=== PATIENT | female | born 1965 | race Caucasian/White ===

== ENCOUNTER 2023-04-23 17:28 | Observation (INO) | payer BC ==
--- NOTE | 2023-04-23 19:19 | US ---
EXAMINATION TYPE: US venous doppler duplex LE LT DATE OF EXAM: 04/23/2023 6:17 PM COMPARISON: NONE CLINICAL INDICATION: Female, 57 years old with history of pain; Pt states she woke up this morning an d her left leg was swollen. Pt states it only hurts to walk on it.. Not on blood thinners SIDE PERFORMED: Left TECHNIQUE: The lower extremity deep venous system is examined utilizing real time linear array sonog klaudia with graded compression, doppler sonography and color-flow sonography. VESSELS IMAGED: Common Femoral Vein Deep Femoral Vein Greater Saphenous Vein * Femoral Vein Popliteal Vein Small Saphenous Vein * Proximal Calf Veins (* superficial vessels) Left Leg: There appears to be thrombus seen from the CFV all the way down to the calf veins with no flow. IMPRESSION: Extensive deep venous thrombosis of the left lower extremity extending from the common femoral vein d own to the calf. Findings called to Dr. Martinez on 04/23/2023 at 7:14 PM.
[2023-04-23] MEDS ORDERED: APIXABAN 5 MG TAB PO STA (19:21)
--- NOTE | 2023-04-23 19:40 | ED ---
Extremity Problem HPI - General Chief complaint: Extremity Problem,Nontraumatic Stated complaint: poss leg clot-sent from urgent care Time Seen by Provider: 04/23/23 18:05 Source: patient Mode of arrival: ambulatory Limitations: no limitations - History of Present Illness Initial comments: Patient is a 57-year-old female presents to the emergency department for possible DVT. She has had pain in the back of her left thigh when walking for the past couple days. Today she noticed discoloration of her leg and went to urgent care. She was sent to the emergency department. She denies history of DVT and PE. She does admit to recent long travel in the car. She is a tobacco user. Denies hormone replacement, airplane travel, surgical interventions, known cancers, family history of clotting, tobacco use. No chest pain or shortness of breath. - Related Data Home Medications Medication Instructions Recorded Confirmed Famotidine [Pepcid] 20 mg PO BID 04/23/23 04/23/23 lisinopriL [Zestril] 5 mg PO DAILY 04/23/23 04/23/23 Allergies Allergy/AdvReac Type Severity Reaction Status Date / Time codeine Allergy Nausea & Verified 04/23/23 20:07 Vomiting naproxen [From Naprosyn] Allergy Anaphylaxis Verified 04/23/23 20:07 Review of Systems ROS Statement: Those systems with pertinent positive or pertinent negative responses have been documented in the HPI. ROS Other: All systems not noted in ROS Statement are negative. Past Medical History Additional Past Medical History / Comment(s): brain aneurysm History of Any Multi-Drug Resistant Organisms: None Reported Past Surgical History: Section Past Psychological History: No Psychological Hx Reported Smoking Status: Current every day smoker Past Alcohol Use History: Daily Past Drug Use History: Marijuana General Exam Limitations: no limitations General appearance: alert, in no apparent distress Respiratory exam: Present: normal lung sounds bilaterally. Absent: respiratory distress, wheezes, rales, rhonchi, stridor Cardiovascular Exam: Present: regular rate, normal rhythm, normal heart sounds. Absent: systolic murmur, diastolic murmur, rubs, gallop, clicks Extremities exam: Present: other (red/blue discoloration of entire left lower extremity. DP 2+.) Neurological exam: Present: alert, oriented X3, CN II-XII intact Psychiatric exam: Present: normal affect, normal mood Skin exam: Present: warm, dry, intact, normal color. Absent: rash Course Vital Signs 04/23/23 04/23/23 04/23/23 17:58 20:21 21:41 Temperature 98.3 F 98.7 F 97.9 F Pulse Rate 112 H 76 90 Respiratory 20 16 14 Rate Blood Pressure 115/79 169/85 139/73 O2 Sat by Pulse 97 94 L 97 Oximetry Medical Decision Making - Medical Decision Making Was pt. sent in by a medical professional or institution (KYRIE Holland, SWITCHBOARD RECEPTIONIST, urgent care, hospital, or half-way...) When possible be specific @ -No Did you speak to anyone other than the patient for history (EMS, parent, family, police, friend...)? What history was obtained from this source @ -No Did you review nursing and triage notes (agree or disagree)? Why? @ -I reviewed and agree with nursing and triage notes Were old charts reviewed (outside hosp., previous admission, EMS record, old EKG, old radiological studies, urgent care reports/EKG's, half-way records)? Report findings @ -No old charts were reviewed Differential Diagnosis (chest pain, altered mental status, abdominal pain women, abdominal pain men, vaginal bleeding, weakness, fever, dyspnea, syncope, headache, dizziness, GI bleed, back pain, seizure, CVA, palpatations, mental health)? @ -DVT, cellulitis, phlegmasia cerulea dolens EKG interpreted by me (3pts min.). @ -As above X-rays interpreted by me (1pt min.). @ -None done CT interpreted by me (1pt min.). @ -None done U/S interpreted by me (1pt. min.). @ -No. Ultrasound shows thrombus seen from the common femoral vein all the way down the calf veins with no flow What testing was considered but not performed or refused? (CT, X-rays, U/S, labs)? Why? @ -None What meds were considered but not given or refused? Why? @ -None Did you discuss the management of the patient with other professionals (professionals i.e. KYRIE Holland, SWITCHBOARD RECEPTIONIST, lab, RT, psych nurse, administrator social welfare, features reporter, teacher, disability liaison officer, window caser)? Give summary @ -No Was smoking cessation discussed for >3mins.? @ -No Was critical care preformed (if so, how long)? @ -No Were there social determinants of health that impacted care today? How? (Homelessness, low income, unemployed, alcoholism, drug addiction, transportation, low edu. Level, literacy, decrease access to med. care, fdc, rehab)? @ -No Was there de-escalation of care discussed even if they declined (Discuss DNR or withdrawal of care, Hospice)? DNR status @ -No What co-morbidities impacted this encounter? (DM, HTN, Smoking, COPD, CAD, Cancer, CVA, ARF, Chemo, Hep., AIDS, mental health diagnosis, sleep apnea, morbid obesity)? @ -None Was patient admitted / discharged? Hospital course, mention meds given and route, prescriptions, significant lab abnormalities, going to OR and other pertinent info. @ -Admitted. Patient has extensive thrombus seen from the common femoral vein all the way down the calf pains with no flow. 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 Patient did have brain aneurysm several years ago she will be admitted for further evaluation and management. Case discussed with Dr. Carney who accepts admission or observation. Vascular surgery is on consult Undiagnosed new problem with uncertain prognosis? @ -No Drug Therapy requiring intensive monitoring for toxicity (Heparin, Nitro, Insulin, Cardizem)? @ -No Were any procedures done? @ -No Diagnosis/symptom? @ -DVT left lower extremity Acute, Chronic, or Acute on Chronic? Acute Uncomplcated (without systemic symptoms) or Complicated (systemic symptoms)? @ -Uncomplicated Side effects of treatment? @ -No Exacerbation, Progression, or Severe Exacerbation? @ -No Poses a threat to life or bodily function? How? (Chest pain, [place], [place], pneumonia, PE, COPD, DKA, ARF, appy, cholecystitis, CVA, Diverticulitis, Homicidal, Suicidal, threat to staff... and all critical care pts) @ -No Dr. Meléndez is my attending Disposition Clinical Impression: Deep vein thrombosis (DVT) of lower extremity Disposition: ADMITTED IP TO THIS HOSP Condition: Good
[2023-04-23] MEDS ORDERED: ACETAMINOPHEN TAB 325 MG TAB PO PRN (19:41)
[2023-04-23] MEDS ORDERED: IPRATROPIUM-ALBUTEROL 3 ML NEB INHALATION PRN (23:41)
--- NOTE | 2023-04-23 23:51 | P.HPIM ---
History of Present Illness H&P Date: 04/23/23 Chief Complaint: left leg swelling 57 year old female with hypertension she is coming in today due to sudden onset pain and swelling of the left leg and thigh. she claims that suddenly today noticed swelling and discoloration over the left leg and thigh, along with extreme pain while walking that is resolved with rest. she denies any injury or similar episodes in the past, denies any history of blood clots. denies history of arthritis . denies any history of recent surgery , or cancer. denies any recent hospital stay. however, she does report of recent traveling by car, about 2 weeks ago she traveled 9 hours back from vacation by car. she claims that they made multiple stops for gas and food though. otherwise, denies any trouble breathing or chest pain , no fever, chills, no open wounds over the leg, no tenderness while resting doing nothing. no numbness or tingling over the left leg. Review of Systems Pertinent positives as noted in HPI. All other systems were reviewed and are negative Past Medical History Additional Past Medical History / Comment(s): brain aneurysm History of Any Multi-Drug Resistant Organisms: None Reported Past Surgical History: Section Past Psychological History: No Psychological Hx Reported Smoking Status: Current every day smoker Past Alcohol Use History: Daily Past Drug Use History: Marijuana Medications and Allergies Home Medications Medication Instructions Recorded Confirmed Type Famotidine [Pepcid] 20 mg PO BID 04/23/23 04/23/23 History lisinopriL [Zestril] 5 mg PO DAILY 04/23/23 04/23/23 History Allergies Allergy/AdvReac Type Severity Reaction Status Date / Time codeine Allergy Nausea & Verified 04/23/23 20:07 Vomiting naproxen [From Naprosyn] Allergy Anaphylaxis Verified 04/23/23 20:07 Physical Exam Vitals: Vital Signs Temp Pulse Resp BP Pulse Ox 04/23/23 17:58 98.3 F 112 H 20 115/79 97 Intake and Output 04/23/23 04/23/23 04/23/23 06:59 14:59 22:59 Other: Weight 67.132 kg Constitutional: No acute distress, conversant, pleasant Eyes: Anicteric sclerae, moist conjunctiva, Pupils equal round reactive to light ENMT: NC/AT Oropharynx clear, no erythema, or exudates Neck: Supple, no masses, or JVD No carotid bruits No thyromegaly Lungs: good air entry, with end expiratory wheezing Clear to percussion Normal respiratory effort, no accessory muscle use Cardiovascular: Heart regular in rate and rhythm, No murmurs, gallops, or rubs swelling of the left leg and thigh Abdominal: Soft Nontender, no guarding, rebound or rigidity Abdomen moving with respiration Normoactive bowel sounds No hepatomegaly, No splenomegaly No palpable mass No abdominal wall hernia noted Skin: dusky looking left lower extremity with swelling , no erythema or induration. no open wounds. Extremities: No digital cyanosis No clubbing Pedal pulses intact and symmetrical Radial pulses intact and symmetrical left calf tenderness Psychiatric: Alert and oriented to person, place and time Appropriate affect fair judgment Neuro Muscles Strength 5/5 in all 4 extremities (with limitation over the left leg, due to pain) Sensation to light touch grossly present throughout Cranial nerves II-XII grossly intact Lymphatics: no palpable cervical or supraclavicular lymph nodes Assessment and Plan Assessment: 57 year old female presenting with left leg pain , I discussed the case with ED doc, she has large acute DVT left common femoral all the way into the calf. I accepted the admission for anticoagulation and vascular surgery eval. with antic ipated length of stay < 2 midnights acute provoked DVT of the left leg initiated on Eliquis 10 mg bid for 1 week, then transition to 5 mg bid po monitor vital signs vascular surgery eval neruo vascular exam of the left leg q4hr supportive care pain control with opiates hypertension , controlled resume lisinopril 5 mg po daily full code DVT PPX on eliquis for acute DVT heart healthy diet clinical copd PRN duoneb for SOB or wheezing blood work is not available at this time . will send for CBC, PT, PTT, INR, CMP, factor 5 ,
[2023-04-24 01:02] LABS: Basophils % (A) 0 %; Eosinophils % (A) 0 %; HCT 47.8 % (34.0-46.0); HGB 16.1 gm/dL (11.4-16.0); Lymphocytes # (A) 1.4 k/uL (1.0-4.8); Lymphocytes % (A) 17 %; MCH 34.6 pg (25.0-35.0); MCHC 33.7 g/dL (31.0-37.0); MCV 102.8 fL (80.0-100.0); Macrocytosis Slight; Mean Platelet Volume 7.7; Monocytes # (A) 0.5 k/uL (0-1.0); Monocytes % (A) 6 %; Neutrophils # (A) 6.3 k/uL (1.3-7.7); Neutrophils % (A) 75 %; Platelet Count 173 k/uL (150-450); RBC 4.65 m/uL (3.80-5.40); RDW 12.4 % (11.5-15.5); WBC 8.3 k/uL (3.8-10.6)
[2023-04-24 01:53] LABS: INR 0.9 (<1.2); Partial Thromboplastin Time 27.5 sec (22.0-30.0); Prothrombin Time 9.6 sec (9.0-12.0)
[2023-04-24 01:54] LABS: ALT 41 U/L (4-34); AST 41 U/L (14-36); African American GFR (CKD) >90 (>60 ml/min/1.73 sqM); Albumin 4.2 g/dL (3.5-5.0); Albumin/Globulin Ratio 1.4; Alkaline Phosphatase 77 U/L (38-126); Anion Gap 13 mmol/L; Blood Urea Nitrogen 13 mg/dL (7-17); Calcium 9.1 mg/dL (8.4-10.2); Carbon Dioxide 20 mmol/L (22-30); Chloride 95 mmol/L (98-107); Globulin 3.1 g/dL; Glucose 111 mg/dL (74-99); Non-African American GFR(CKD) >90 (>60 ml/min/1.73 sqM); Potassium 4.2 mmol/L (3.5-5.1); Sodium 128 mmol/L (137-145); Total Protein 7.3 g/dL (6.3-8.2)
[2023-04-24 05:18] VITALS: RESP 18
--- NOTE | 2023-04-24 08:57 | P.GSCN ---
History of Present Illness Consult date: 04/24/23 Reason for Consult: Extensive left lower extremity DVT Requesting physician: Meliza Madrid History of present illness: This is a pleasant 57-year-old female who presented to the emergency department yesterday afternoon with complaints of left lower extremity swelling and pain that began 1-2 days ago. Her past medical history includes brain aneurysm in her 20s, daily alcohol use, and 1 pack per day daily smoker. She denied any injuries. Pain is mostly with walking. She had a venous duplex that showed extensive DVT from the common femoral vein down the calf. Vascular surgery was consulted for DVT. She denies any history of previous DVT, no history of pulmonary embolism, clotting disorder or family history of DVT or clotting disorders. She is a daily smoker and smokes 1 pack per day, also drinks 6-7 be ers daily and uses marijuana. She recently went on a trip in the car about 2 weeks ago that was about 9 hours. She currently denies any shortness of breath or chest pain, currently denies any pain in her leg and states the swelling has improved since coming to the emergency room. She was started on Eliquis 10 mg yesterday evening. Review of Systems A 14 point review systems was completed all pertinent positives and negatives as stated in the HPI. Past Medical History Additional Past Medical History / Comment(s): brain aneurysm History of Any Multi-Drug Resistant Organisms: None Reported Past Surgical History: Section Past Psychological History: No Psychological Hx Reported Smoking Status: Current every day smoker Past Alcohol Use History: Daily Past Drug Use History: Marijuana Medications and Allergies Home Medications Medication Instructions Recorded Confirmed Type Famotidine [Pepcid] 20 mg PO BID 04/23/23 04/23/23 History lisinopriL [Zestril] 5 mg PO DAILY 04/23/23 04/23/23 History Allergies Allergy/AdvReac Type Severity Reaction Status Date / Time codeine Allergy Nausea & Verified 04/23/23 20:07 Vomiting naproxen [From Naprosyn] Allergy Anaphylaxis Verified 04/23/23 20:07 Surgical - Exam Vital Signs Temp Pulse Resp BP Pulse Ox 98.3 F 112 H 20 115/79 97 04/23/23 17:58 04/23/23 17:58 04/23/23 17:58 04/23/23 17:58 04/23/23 17:58 General appearance: The patient is alert, oriented, appears in no acute distress. HET: Head is normocephalic and atraumatic. Pupils are equal and reactive. Neck: Supple. Heart: Regular. Lungs: Equal expansion, normal respiratory effort. Abdomen: Soft, nontender, nondistended. Extremities: Left lower extremity swelling from the thigh down with redness. No pain with compression. Palpable femoral and DP pulse. Neurological: No focal deficits. Strength and sensation are grossly intact. Results - Labs 04/24/23 00:15 04/24/23 00:15 Abnormal Lab Results - Last 24 Hours (Table) 04/24/23 04/24/23 Range/Units 00:15 00:15 Hgb 16.1 H (11.4-16.0) gm/dL Hct 47.8 H (34.0-46.0) % MCV 102.8 H (80.0-100.0) fL Sodium 128 L (137-145) mmol/L Chloride 95 L (98-107) mmol/L Carbon Dioxide 20 L (22-30) mmol/L Glucose 111 H (74-99) mg/dL AST 41 H (14-36) U/L ALT 41 H (4-34) U/L Diabetes panel 04/24/23 Range/Units 00:15 Sodium 128 L (137-145) mmol/L Potassium 4.2 (3.5-5.1) mmol/L Chloride 95 L (98-107) mmol/L Carbon Dioxide 20 L (22-30) mmol/L BUN 13 (7-17) mg/dL Creatinine 0.62 (0.52-1.04) mg/dL Glucose 111 H (74-99) mg/dL Calcium 9.1 (8.4-10.2) mg/dL AST 41 H (14-36) U/L ALT 41 H (4-34) U/L Alkaline Phosphatase 77 (38-126) U/L Total Protein 7.3 (6.3-8.2) g/dL Albumin 4.2 (3.5-5.0) g/dL Calcium panel 04/24/23 Range/Units 00:15 Calcium 9.1 (8.4-10.2) mg/dL Albumin 4.2 (3.5-5.0) g/dL Pituitary panel 04/24/23 Range/Units 00:15 Sodium 128 L (137-145) mmol/L Potassium 4.2 (3.5-5.1) mmol/L Chloride 95 L (98-107) mmol/L Carbon Dioxide 20 L (22-30) mmol/L BUN 13 (7-17) mg/dL Creatinine 0.62 (0.52-1.04) mg/dL Glucose 111 H (74-99) mg/dL Calcium 9.1 (8.4-10.2) mg/dL Adrenal panel 04/24/23 Range/Units 00:15 Sodium 128 L (137-145) mmol/L Potassium 4.2 (3.5-5.1) mmol/L Chloride 95 L (98-107) mmol/L Carbon Dioxide 20 L (22-30) mmol/L BUN 13 (7-17) mg/dL Creatinine 0.62 (0.52-1.04) mg/dL Glucose 111 H (74-99) mg/dL Calcium 9.1 (8.4-10.2) mg/dL Total Bilirubin 1.0 (0.2-1.3) mg/dL AST 41 H (14-36) U/L ALT 41 H (4-34) U/L Alkaline Phosphatase 77 (38-126) U/L Total Protein 7.3 (6.3-8.2) g/dL Albumin 4.2 (3.5-5.0) g/dL Assessment and Plan Assessment: 1. Extensive left lower extremity deep vein thrombosis 2. Nicotine dependence, one pack per day smoker 3. Daily alcohol use, admits to 6-7 beers daily 4. History of brain aneurysm Plan: Patient swelling has improved while lying down and elevating left lower extremity. Continue with eliquis starter pack. Thigh-high NATAN hose to left lower extremity, continue to elevate. No plans at this time for any surgical intervention. Recommend patient follow-up with Dr. Brennan next week. Discuss with patient importance of smoking and alcohol cessation. Patient verbalized understanding. The impression and plan of care has been dictated as directed. Dr. Brennan I performed a history and examination of this patient, discussed the same with the dictator. I agree with the dictator's note ,documented as a scribe. Any additional findings or plans will be noted.
[2023-04-24] MEDS ORDERED: Apixaban Starter Pk for VTE 5 MG TAB PO SCH (09:00)
[2023-04-24] MEDS ORDERED: lisinopriL 5 MG TAB PO SCH (09:00)
[2023-04-24] MEDS ORDERED: FAMOTIDINE 20 MG TAB PO SCH (09:00)
--- NOTE | 2023-04-24 09:40 | P.DS ---
Providers Date of admission: 04/23/23 19:49 Expected date of discharge: 04/24/23 Attending physician: Elmo Carney MD Consults: 04/23/23 19:40 Consult Physician Routine Consulting Provider: Ciro Romero Consult Reason/Comments: DVT Do you want consulting provider notified?: Yes Primary care physician: Storm Pina Hospital Course: Discharge Diagnosis: Extensive left lower extremity DVT, patient discharged home on Eliquis starter pack and a follow up outpatient with vascular surgeon in 1 week. Nicotine dependence, patient counseled on importance of smoking cessation and risks associated with continued use. At risk alcohol use/abuse, patient reports drinking 6-7 beers daily. Recommend decrease/cessation of use. Hypochloremic Hyponatremia, secondary to daily alcohol use/abuse Elevated liver enzymes, secondary to daily alcohol use/abuse Polycythemia secondary to daily nicotine dependence. History of brain aneurysm Hospital Course: Patient is a very pleasant 57-year-old female with a past medical history of alcohol use/abuse, nicotine dependence, and history of brain aneurysm. She presented to the emergency department secondary to left lower extremity pain and swelling 2 days. Patient reports pain and swelling extended from distal left lower extremity upwards into side. Patient reports swelling and pain improved with rest but severely increased with ambulation/attempts at ambulation. Patient underwent a left lower extremity venous Doppler which revealed an extensive DVT of the left lower extremity extending from the common femoral down to the calf. She was evaluated by vascular surgery. Patient started on oral anticoagulation with Eliquis and cleared from vascular surgery standpoint for discharge. Patient currently eager for discharge denying any dizziness, lightheadedness, headache, chest pain, palpitations, shortness of breath, or any other complaints. She does report improvement in swelling throughout the night with elevation of leg. Patient educated on the importance of taking anticoagulant as indicated and to follow up outpatient with PCP in 1-2 days and vascular surgery in 1 week. Physical exam: Patient seen and examined at bedside. Vital signs reviewed and stable. General: Nontoxic, no distress and appears stated age. Derm: Skin warm and dry, normal coloration for ethnicity. Head: Atraumatic, normocephalic and symmetric. Eyes: EOMs intact, no lid lag, and anicteric sclera Mouth: no lip lesions, mucus membranes moist Cardiovascular: regular rate and rhythm with normal S1S2, no murmur, positive posterior tibial pulses bilaterally, and cap refill < 2 seconds. Lungs: Respirations even, regular, and unlabored on room air. Lungs CTA bilaterally, no rhonchi, no rales, no wheezing, and no accessory muscle usage. Abdominal: soft, nontender to palpation, no guarding, no appreciable organomegaly Ext: ROM intact. No gross muscle atrophy, mild swelling left lower extremity, no contractures Neuro: Speech clear, face symmetrical and CN II-XII grossly intact with no noted focal neuro deficits Psych: Alert and oriented to person, place, time, and situation. Appropriate and pleasant affect. A total of 32 minutes of time were spent preparing this complex discharge summary. Pt was discharged on 04/24/23 at 9:34 AM Patient was seen independently by Nurse Practitioner. This document was prepared using [employer] dictation software. Please allow for errors in change management facilitator while rare they do occur. I reviewed the documentation as provided by the REKHA above, who is the original author of this note. I agree with the documented assessment and plan, with the following changes: none Patient Condition at Discharge: Stable Plan - Discharge Summary New Discharge Prescriptions: New Apixaban [Eliquis Starter Pack (for VTE)] 5 - 10 mg PO DIRECTED 30 Days #1 each Continue lisinopriL [Zestril] 5 mg PO DAILY Famotidine [Pepcid] 20 mg PO BID Discharge Medication List Famotidine [Pepcid] 20 mg PO BID 04/23/23 [History] lisinopriL [Zestril] 5 mg PO DAILY 04/23/23 [History] Apixaban [Eliquis Starter Pack (for VTE)] 5 - 10 mg PO DIRECTED 30 Days #1 each 04/24/23 [Rx] Follow up Appointment(s)/Referral(s): Storm Pina MD [Primary Care Provider] - 1-2 days Rosy Brennan DO [STAFF PHYSICIAN] - 1 Week () Patient Instructions/Handouts: How to Stop Smoking (DC), Deep Vein Thrombosis (DC), At-Risk Alcohol Use (DC), Deep Vein Thrombosis Prevention (DC) Activity/Diet/Wound Care/Special Instructions: Activity: As tolerated. Take breaks as needed. Diet: Heart healthy and carb consistent diet. Avoid salts, or foods with hidden salts such as canned or boxed foods and frozen dinners. Extra salt makes your heart work harder and traps the fluid in your body for longer. Special Instructions: Take all of your medications as directed and remember to keep all of your doctor's appointments and follow-up as needed. You are also being discharged home on a blood thinner, Eliquis. This is very important to take daily as directed until otherwise advised by your vascular surgeon, Dr. Brennan. Being that you are being placed on a blood thinner it is very important to watch for any signs of bleeding and notify your doctor immediately if you notice any bleeding. It is also important to remove any trip hazards such as rugs or loose extension cords from your home to prevent unnecessary falls and if you do experience a fall or head injury, it is extremely important to be evaluated by a medical provider immediately to ensure no internal bleeding. Thank you for allowing us to participate in your care, it was truly a pleasure having you for our patient!!! Discharge Disposition: HOME SELF-CARE
[2023-04-24 10:20] VITALS: BP 118/80; PULSE 111; TEMP 98.2
== END 2023-04-24 10:17 | disposition home or self-care (01) ==
LOC: EC 17:28 → 4SSUR 19:49
PROVIDERS: ADMIT Internal Medicine; ATTEND Internal Medicine
DX: I82.412 Acute embolism and thrombosis of left femoral vein (principal); I82.4Z2 Acute embolism and thrombosis of unspecified deep veins of left distal lower extremity; E87.1 Hypo-osmolality and hyponatremia; E87.8 Other disorders of electrolyte and fluid balance, not elsewhere classified; R74.8 Abnormal levels of other serum enzymes; D75.1 Secondary polycythemia; I10 Essential (primary) hypertension; F12.90 Cannabis use, unspecified, uncomplicated; F10.90 Alcohol use, unspecified, uncomplicated; J44.9 Chronic obstructive pulmonary disease, unspecified; F17.200 Nicotine dependence, unspecified, uncomplicated; I67.1 Cerebral aneurysm, nonruptured; Z79.899 Other long term (current) drug therapy; Z88.5 Allergy status to narcotic agent
CPT/HCPCS: 99285; 80053; 85025; 85610; 85730; 81241; 93971; G0378 ×2

== ENCOUNTER → 2023-07-01 | Outpatient (CLI) | payer BC ==
--- NOTE | 2023-07-02 23:43 | MM ---
Reason for Exam: Screening (asymptomatic). Patient History: Menarche at age 12. First Full-Term at age 13. Postmenopausal. Risk Values: Anny 5 year model risk: 1.0%. NCI Lifetime model risk: 5.6%. Tissue Density: The breast tissue is heterogeneously dense. This may lower the sensitivity of mammography. Findings: Analyzed By CAD. Some subtle underlying vascular calcifications are noted on the left. Benign calcification also on the left and a few scattered punctate calcifications on the right. Benign low axillary tail lymph node on the right. No significant mass, suspicious microcalcification, or other discrete abnormality is seen. Overall Assessment: Benign, BI-RAD 2 Management: Screening Mammogram of both breasts in 1 year. . Patient should continue monthly self-breast exams. A clinical breast exam by your physician is recommended on an annual basis. This exam should not preclude additional follow-up of suspicious palpable abnormalities. Note on Anny scores and lifetime risk: 1. A Anny score greater than 3% is considered moderate risk. If this is the case, consider specialist referral to assess eligibility for a risk reducing agent. 2. If overall lifetime risk for the development of breast cancer is 20% or higher, the patient may qualify for future screening with alternating mammogram and breast MRI. Electronically signed and approved by: Rani Fields M.D. Radiologist
== END | disposition home or self-care (01) ==
LOC: RADMAMWWP 16:52
PROVIDERS: ATTEND Family Medicine
DX: Z12.31 Encounter for screening mammogram for malignant neoplasm of breast (principal); Z78.0 Asymptomatic menopausal state
CPT/HCPCS: 77067

== ENCOUNTER → 2023-07-09 | Outpatient (CLI) | payer BC ==
--- NOTE | 2023-07-10 08:27 | CTL ---
EXAMINATION TYPE: CT Low Dose Lung DATE OF EXAM ORDERED: 07/09/2023 HISTORY: . Lung cancer screening CT DLP: 81.[address] CTDI: 2.1 mGy Automated exposure control for dose reduction was used. SCREENING VISIT: COMPARISON: None TECHNIQUE: Low dose computed tomography scan was performed through the chest at 1 mm thick sections a nd reconstructed images in multiple planes at 1 mm and [address] DIAGNOSTIC QUALITY: Satisfactory FINDINGS: Diffuse centrilobular saphenous changes seen. Biapical areas a calcified granuloma is seen in the rig ht upper lobe largest measuring 5 mm. No evidence consolidation or pleural effusion. No pneumothorax. Coronary artery calcifications seen. Heart size normal. Mild atherosclerotic change aorta. No evidenc e of aneurysm. Evaluation the upper abdomen demonstrates hepatic and splenic granuloma. Small hiatal hernia There are calcified hilar lymph nodes on the right. Assessment for adenopathy limited by noncontrast technique no obvious pathologic Hypertrophic and degenerative changes spine. Chronic appearing superior endplate compression deformit y lower thoracic spine on chronic rib deformity is seen on the left suggesting remote trauma. IMPRESSION: 1. Centrilobular emphysema with benign calcified granulomas right upper lobe. 2. Coronary artery calcification. CT LUNG RAD AND CT CHEST RECOMMENDATION: Lung-Rad 2 Benign Appearance or Behavior: Continue annual sc reening with LDCT in 12 months.
--- NOTE | 2023-07-10 10:48 | MR ---
EXAMINATION TYPE: MR angio head wo con DATE OF EXAM: 07/09/2023 COMPARISON: None available at this location. HISTORY: Hx of aneurysm at age 22 at [facility], evaluate intercranial aneurysm CONTRAST: None TECHNIQUE: Multiplanar multiecho imaging on a 3.0 Ruth Ann magnet is performed through the hopi of [facility]. 3-D [id number] imaging is performed. Source images are reviewed on the computer in the axi al plane. Reconstructed images rotating on the computer are reviewed. FINDINGS: The internal carotid arteries bifurcate normally into A1 and M1 segments. The A2 segments are normal. Middle cerebral artery branches are normal. Anterior communicating artery is absent. The right posterior communicating artery is patent. The left posterior communicating artery is patent slightly smaller than the right. This is not well v isualized on the reconstructed images but widely patent source images. Middle cerebral artery branches appear normal. Origins of the posterior communicating arteries appear normal. Posterior-inferior cerebellar arteries appear normal. Basilar tip appears normal. No aneurys mal dilatation is evident. Vertebrobasilar arteries within the [id number] are normal. Posterior cerebral vasculature is norm al. No suspicious aneurysm or aneurysmal dilatation is evident. No obstructions are identified. No significant flow-limiting stenosis is evident. IMPRESSIONS: 1. Patient's reported prior aneurysm not identified on the current examination. Comparison images or reports would be useful for comparison. An addendum report could be issued following comparison.
== END | disposition home or self-care (01) ==
LOC: RADCTMAIN 17:03
PROVIDERS: ATTEND Family Medicine
DX: Z12.2 Encounter for screening for malignant neoplasm of respiratory organs (principal); J43.2 Centrilobular emphysema; I25.10 Atherosclerotic heart disease of native coronary artery without angina pectoris; J84.10 Pulmonary fibrosis, unspecified; F17.210 Nicotine dependence, cigarettes, uncomplicated; Z86.79 Personal history of other diseases of the circulatory system
CPT/HCPCS: 70544; 71271

== ENCOUNTER 2023-11-07 06:55 | Day surgery (SDC) | payer BC ==
[2023-11-04 13:36] VITALS: BMI 23.7
[~2023-11-07 06:55] MED LIST: LACTATED RINGERS 1,000 ML IV SCH; LIDOCAINE 1% (10MG/ML) FOR IV START INTRADERMA PRN
[2023-11-07 07:36] VITALS: TEMP 97.7
[2023-11-07] MEDS ORDERED: LIDOCAINE 2% (PF) 20 MG/ML 5 ML VIAL ONE (07:58)
[2023-11-07] MEDS ORDERED: PROPOFOL 10 MG/ML 20 ML VIAL IV ONE (07:58)
--- NOTE | 2023-11-07 08:36 | P.PCN ---
Date of Procedure: 11/07/23 Procedure(s) Performed: Brief history: Patient is a pleasant 58-year-old white female scheduled for an elective upper endoscopy as well as colonoscopy as a part of evaluation of iron deficiency anemia. She has history of DVT and is on a lEliquis for the last 6 months. She denies any GI bleed. Procedure performed: Esophagogastroduodenoscopy biopsy Colonoscopy with argon plasma coagulation and Endo Clip placement Preoperative diagnosis: Iron deficiency anemia Anesthesia: MAC Procedure: After informed consent was obtained from the patient was brought into the endoscopy unit and IV sedation was administered by anesthesia under continuous monitoring. Initially upper endoscopy was done. The Olympus GF 160 video endoscope was inserted inserted into the mouth and esophagus intubated without any difficulty and was gradually advanced into the stomach and duodenum and carefully examined. The bulb and second part of the duodenum appeared normal. The scope was then withdrawn into the stomach adequately insufflated with air and upon careful examination the antrum and body, cardia and fundus appeared normal. The scope was then withdrawn into the esophagus. The GE junction was located at 40 cm to the incisors. It appeared regular with no erythema erosions or ulcerations. Rest of the esophagus appeared normal. Patient tolerated the procedure well. At this time the patient continued to remain sedation. Initial digital rectal examination was normal. Olympus CF 160 video colonoscope was then inserted into the rectum and gradually advanced to the cecum without any difficulty. Careful examination was performed as the scope was gradually being withdrawn. The prep was excellent. The cecum, had 2 nonbleeding arterial venous malformation measuring almost 1 cm in size both of these were coagulated using argon plasma followed by Endo Clip placement on one of the AVMs as there was continued oozing. Mucosa of the ascending colon, transverse colon, descending colon, sigmoid colon and rectum appeared normal. Scattered left sided diverticulosis. Retroflexion was performed in the rectum and no lesions were noted. Patient tolerated the procedure well. Impression: 1. Upper endoscopy revealed mild antral gastritis but no evidence of esophagitis or peptic ulcer disease 2. 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 She was advised to follow with the biopsy results. Resume liquids tonight. Monitor CBC periodically Continue iron supplements
[2023-11-07 09:17] VITALS: BP 142/86; PULSE 75; RESP 20
== END 2023-11-07 09:35 | disposition home or self-care (01) ==
LOC: ORWHC2ENDO 06:55
PROVIDERS: ATTEND Internal Medicine Gastroenterology
DX: K29.50 Unspecified chronic gastritis without bleeding (principal); D50.9 Iron deficiency anemia, unspecified; K57.30 Diverticulosis of large intestine without perforation or abscess without bleeding; Z79.01 Long term (current) use of anticoagulants
CPT/HCPCS: 45382; 88305; 88342; 43239; J2704; J2001; 45388

== ENCOUNTER → 2024-02-19 | Outpatient (CLI) | payer BC | END | disposition home or self-care (01) | LOC: LABWHC1 15:29 | PROVIDERS: ATTEND Family Medicine | DX: R00.0 Tachycardia, unspecified (principal) | CPT/HCPCS: 36415; 84443; 84484; 85379 ==

== ENCOUNTER → 2024-02-20 | Outpatient (CLI) | payer BC ==
--- NOTE | 2024-02-20 11:22 | CT ---
EXAMINATION TYPE: CT angio chest CT DLP: 218.2 mGycm, Automated exposure control for dose reduction was used. DATE OF EXAM: 02/20/2024 10:28 AM COMPARISON: Chest radiograph from same day. Multiple CTs of the chest with most recent on . CLINICAL INDICATION:Female, 58 years old with history of R79.1 ABNORMAL COAGULATION PROFILE; elevated d-dimer TECHNIQUE/CONTRAST: CTA scan of the thorax is performed with IV Contrast, patient injected with 40 mL of Isovue 370, MIP images are created and reviewed these are created on a separate workstation.. FINDINGS: Pulmonary Artery: There is no evidence for a filling defect within the pulmonary vasculature to sugge st acute pulmonary embolism. The pulmonary artery is of normal size. Lungs/Pleura: Small patch of focal consolidation in the inferior lingula. No pleural effusion. No pne umothorax. Airway: Large airways are patent. Heart: Heart is within normal limits for size. Vasculature: No evidence of aortic aneurysm. Mediastinum: No gross evidence of adenopathy. Musculoskeletal: No acute osseous abnormalities Soft Tissues: Unremarkable. Lower neck: No significant findings. Upper Abdomen: No significant findings. IMPRESSION: 1. No evidence of pulmonary embolism. Small patch of airspace disease in the inferior lingula, possible pneumonia
== END | disposition home or self-care (01) ==
LOC: RADCTMAIN 09:41
PROVIDERS: ATTEND Family Medicine
DX: J98.4 Other disorders of lung (principal); R79.1 Abnormal coagulation profile; R79.89 Other specified abnormal findings of blood chemistry
CPT/HCPCS: 71275; Q9967

== ENCOUNTER → 2024-03-19 | Outpatient (CLI) | payer BC ==
--- NOTE | 2024-03-23 08:54 | US ---
EXAMINATION TYPE: US carotid duplex BILAT DATE OF EXAM: 03/19/2024 COMPARISON: NONE CLINICAL INDICATION: Female, 58 years old with history of Z91.89 PERSONAL RISK FACTORS; TECHNIQUE: Carotid duplex ultrasound examination. Indirect Doppler criteria was utilized. FINDINGS: EXAM MEASUREMENTS: RIGHT: Peak Systolic Velocity (PSV) cm/sec ----- Right CCA: 54.0 ----- Right ICA: 91.8 ----- Right ECA: 122.6 ICA/CCA ratio: 1.7 RIGHT: End Diastole cm/sec ----- Right CCA: 14.7 ----- Right ICA: 27.0 ----- Right ECA: 16.0 LEFT: Peak Systolic Velocity (PSV) cm/sec ----- Left CCA: 58.4 ----- Left ICA: 139.7 ----- Left ECA: 93.1 ICA/CCA ratio: 2.4 LEFT: End Diastole cm/sec ----- Left CCA: 13.9 ----- Left ICA: 45.1 ----- Left ECA: 15.4 VERTEBRALS (direction of flow): Right Vertebral: Antegrade Left Vertebral: Antegrade Rhythm: Normal REPRODUCTION MACHINE LOADER NOTES: Moderate plaque bilateral bifurcations. Increased velocities left ICA. IMPRESSION: 1. Less than 50% stenosis of the right carotid bifurcation. 2. 50-69% stenosis of the left carotid bifurcation by peak systolic velocity. Criteria for Assigning % of Stenosis / Diameter reduction (Estimation based on the indirect measurements of the internal carotid artery velocities (ICA PSV). 1. Normal (no stenosis)=ICA PSV < 125 cm/s: ratio < 2.0: ICA EDV<40 cm/s. 2. Less than 50% stenosis=ICA PSV < 125 cm/s: ratio < 2.0: ICA EDV<40 cm/s. 3. 50 to 69% stenosis=ICA PSV of 125 to 230 cm/s: ration 2.0 ? 4.0: ICA EDV 40-100 cm/s. 4. Greater than 70% stenosis to near occlusion= ICA PSV > 230 cm/s: ratio > 4.0: ICA EDV > 100 cm/s. 5. Near occlusion= ICA PSV velocities may be low or undetectable: variable ratio and ICA EDV. 6. Total occlusion=unable to detect flow.
== END | disposition home or self-care (01) ==
LOC: RADUSWWP 16:24
PROVIDERS: ATTEND Family Medicine
DX: I65.01 Occlusion and stenosis of right vertebral artery (principal); Z91.89 Other specified personal risk factors, not elsewhere classified
CPT/HCPCS: 93880

== ENCOUNTER → 2024-08-20 | Outpatient (CLI) | payer BC ==
--- NOTE | 2024-08-23 12:28 | MM ---
Reason for Exam: Screening (asymptomatic). Last mammogram was performed 1 year(s) and 1 month(s) ago. Patient History: Menarche at age 12. First Full-Term at age 13. Postmenopausal. Risk Values: Anny 5 year model risk: 1.0%. NCI Lifetime model risk: 5.5%. Prior Study Comparison: 07/01/2023 Bilateral MG screening mammo w CAD, [facility]. Tissue Density: The breasts are heterogeneously dense, which may obscure small masses. Findings: Analyzed By CAD. Right breast: There is no suspicious group of microcalcifications or new suspicious mass. Left breast: There is no suspicious group of microcalcifications or new suspicious mass. Overall Assessment: Negative, BI-RAD 1 Management: Screening Mammogram of both breasts in [address] [facility] will attempt to contact patient to return for supplemental views and ultrasound if indicated. Patient should continue monthly self-breast exams. A clinical breast exam by your physician is recommended on an annual basis. This exam should not preclude additional follow-up of suspicious palpable abnormalities. Note on Anny scores and lifetime risk: 1. A Anny score greater than 3% is considered moderate risk. If this is the case, consider specialist referral to assess eligibility for a risk reducing agent. 2. If overall lifetime risk for the development of breast cancer is 20% or higher, the patient may qualify for future screening with alternating mammogram and breast MRI. [facility], , 08/23/2024 12:24 PM. Electronically signed and approved by: Arben Del Cid DO
== END | disposition home or self-care (01) ==
LOC: RADMAMWWP 16:32
PROVIDERS: ATTEND Family Medicine
CPT/HCPCS: 77067

== ENCOUNTER 2025-04-26 17:02 | Inpatient (IN) | payer BC, OTHER ==
--- NOTE | 2025-04-26 17:53 | ED ---
Back Pain HPI - General Chief Complaint: Back Pain/Injury Stated Complaint: Back injury Time Seen by Provider: 04/26/25 17:17 Source: patient, RN notes reviewed Limitations: no limitations - History of Present Illness Initial Comments: This is a 59-year-old female presenting from [facility] via EMS with for lower back pain/injury about 10 days ago. Patient states she was pushing a recliner when she suffered a slip and fall backwards, hearing a "pop" at the time with subsequent pain in her lower back. Patient states pain has been continuous since that time despite initial conservative management. Denies saddle paresthesia, urinary incontinence/retention or foot drop. Endorses constipation since 04/21/2025. Denies radiculopathy, distal paresthes ia/weakness. Patient was advised to consult with neurosurgeon due to discovery of T12 compression fracture, thus being transferred to [facility]. There is was some difficulty obtaining lumbar CT scan from imaging disc sent by [facility]. MD Complaint: back injury Onset/Timin -: days(s) Similar Symptoms Previously: No Place: home Severity scale (1-10): 3 - Related Data Home Medications Medication Instructions Recorded Confirmed Albuterol Inhaler [Ventolin Hfa 2 puff INHALATION RT-Q4H PRN 04/26/25 04/26/25 Inhaler] Aspirin EC [Ecotrin Low Dose] 81 mg PO DAILY 04/26/25 04/26/25 Fluticasone/Umeclidin/Vilanter 1 puff INHALATION RT-DAILY 04/26/25 04/26/25 [Trelegy Ellipta 200-62.5-25] Levalbuterol Nebulized [Xopenex 1.25 mg INHALATION RT-BID 04/26/25 04/26/25 Nebulized] Metoprolol Tartrate [Lopressor] 50 mg PO BID-W/MEALS 04/26/25 04/26/25 Rosuvastatin Calcium 5 mg PO DAILY 04/26/25 04/26/25 Allergies Allergy/AdvReac Type Severity Reaction Status Date / Time codeine Allergy Nausea & Verified 04/26/25 18:28 Vomiting naproxen [From Naprosyn] Allergy Anaphylaxis Verified 04/26/25 18:28 Review of Systems ROS Statement: Those systems with pertinent positive or pertinent negative responses have been documented in the HPI. ROS Other: All systems not noted in ROS Statement are negative. Past Medical History Past Medical History: Blood Disorder, Deep Vein Thrombosis (DVT), GERD/Reflux, Hypertension Additional Past Medical History / Comment(s): brain aneurysm,IRON DEFICIENCY ANEMIA. DVT LT THIGH-04/23/23-STILL HAS MILD EDEMA TO LEG History of Any Multi-Drug Resistant Organisms: None Reported Past Surgical History: Section, Tonsillectomy Past Anesthesia/Blood Transfusion Reactions: No Reported Reaction Past Psychological History: No Psychological Hx Reported Smoking Status: Current every day smoker Past Alcohol Use History: Daily Past Drug Use History: None Reported - Past Family History Mother Family Medical History: No Reported History General Exam Limitations: no limitations General appearance: alert, in no apparent distress Head exam: Present: atraumatic, normocephalic, normal inspection Eye exam: Present: normal appearance, PERRL, EOMI. Absent: scleral icterus, conjunctival injection, periorbital swelling ENT exam: Present: normal exam, mucous membranes moist Neck exam: Present: normal inspection. Absent: tenderness, meningismus, lymphadenopathy Respiratory exam: Present: normal lung sounds bilaterally. Absent: respiratory distress, wheezes, rales, rhonchi, stridor Cardiovascular Exam: Present: regular rate, normal rhythm, normal heart sounds. Absent: systolic murmur, diastolic murmur, rubs, gallop, clicks GI/Abdominal exam: Present: soft, normal bowel sounds. Absent: distended, tenderness, guarding, rebound, rigid Extremities exam: Present: normal inspection, full ROM, normal capillary refill, other (Distal BLE neurovascular and motor function intact. Bilateral posterior tibialis pulse +2. Plantar/dorsiflexion intact bilaterally.). Absent: tenderness, pedal edema, joint swelling, calf tenderness Back exam: Present: vertebral tenderness (Positive T12 step-off with associated tenderness). Absent: paraspinal tenderness Neurological exam: Present: alert, oriented X3, CN II-XII intact Psychiatric exam: Present: normal affect, normal mood Skin exam: Present: warm, dry, intact, normal color. Absent: rash Course Vital Signs 04/26/25 04/26/25 04/26/25 17:04 19:36 20:10 Temperature 98.0 F Pulse Rate 82 89 68 Respiratory 18 16 16 Rate Blood Pressure 169/97 153/68 156/79 O2 Sat by Pulse 95 98 95 Oximetry 04/26/25 22:14 Temperature 98.6 F Pulse Rate 72 Respiratory 16 Rate Blood Pressure 123/68 O2 Sat by Pulse 95 Oximetry Medical Decision Making - Medical Decision Making Was pt. sent in by a medical professional or institution (, PA, SENIOR FRONT END WEB DEVELOPER, urgent care, hospital, or fdc...) When possible be specific @ -[facility] Did you speak to anyone other than the patient for history (EMS, parent, family, police, friend...)? What history was obtained from this source @ -No Did you review nursing and triage notes (agree or disagree)? Why? @ -I reviewed and agree with nursing and triage notes Were old charts reviewed (outside hosp., previous admission, EMS record, old EKG, old radiological studies, urgent care reports/EKG's, fdc records)? Report findings @ -ER chart from [facility] reviewed as well as CT scan with discovery of T12 compression fracture and retropulsion into spinal cord with subsequent mass effect onto the thecal sac and possible conus Differential Diagnosis (chest pain, altered mental status, abdominal pain women, abdominal pain men, vaginal bleeding, weakness, fever, dyspnea, syncope, headache, dizziness, GI bleed, back pain, seizure, CVA, palpatations, mental health, musculoskeletal)? @ -Differential Back Pain: Strain, zoster, cauda equina syndrome, epidural abscess, vertebral osteomyelitis, discitis, fracture, subluxation, disc herniation, DJD, spinal stenosis, dissection, AAA, pancreatitis, peptic ulcer disease, pyelonephritis, kidney stone, this is not meant to be an all-inclusive list. EKG interpreted by me (3pts min.). @ -Not done X-rays interpreted by me (1pt min.). @ -None done CT interpreted by me (1pt min.). @ -None done U/S interpreted by me (1pt. min.). @ -None done What testing was considered but not performed or refused? (CT, X-rays, U/S, labs)? Why? @ - Further imaging withheld at this time and will defer to medicine/orthopedics for preferred repeat imaging modality. Patient What meds were considered but not given or refused? Why? @ -None Did you discuss the management of the patient with other professionals (professionals i.e. DrAnna Marie, PA, SENIOR FRONT END WEB DEVELOPER, lab, RT, psych nurse, social work therapist, telephone surveyor, teacher, k [employer] police officer, skilled nursing case manager)? Give summary @ -Spoke to Dr. Thompson who advised to admit under medicine and patient may be sent to surgery tomorrow. Spoke to Dr. Bret mcgowan who agreed to patient admission. Was smoking cessation discussed for >3mins.? @ -No Was critical care preformed (if so, how long)? @ -No Were there social determinants of health that impacted care today? How? (Homelessness, low income, unemployed, alcoholism, drug addiction, transportation, low edu. Level, literacy, decrease access to med. care, group home, rehab)? @ -No Was there de-escalation of care discussed even if they declined (Discuss DNR or withdrawal of care, Hospice)? DNR status @ -No What co-morbidities impacted this encounter? (DM, HTN, Smoking, COPD, CAD, Cancer, CVA, ARF, Chemo, Hep., AIDS, mental health diagnosis, sleep apnea, morbid obesity)? @ -None Was patient admitted / discharged? Hospital course, mention meds given and route, prescriptions, significant lab abnormalities, going to OR and other pertinent info. @ -Initial lab work obtained showing no remarkable findings. Attempted obtaining CT imaging from imaging disc from [facility] but unable to obtain. From spoke to Dr. Thompson who advised patient admission to medicine with possible surgery tomorrow. Spoke to Dr. Jaquez for patient admission. Patient notes current pain at 3/10 and orders made for IV Dilaudid every 3 hours as needed for ongoing pain management. Discussed patient with Dr. Quintanilla. Undiagnosed new problem with uncertain prognosis? @ -No Drug Therapy requiring intensive monitoring for toxicity (Heparin, Nitro, Insulin, Cardizem)? @ -No Were any procedures done? @ -No Diagnosis/symptom? @ -T12 compression fracture Acute, or Chronic, or Acute on Chronic? @ -Acute Uncomplicated (without systemic symptoms) or Complicated (systemic symptoms)? @ -Uncomplicated Side effects of treatment? @ -No Exacerbation, Progression, or Severe Exacerbation? @ -No Poses a threat to life or bodily function? How? (Chest pain, USA, CA, pneumonia, PE, COPD, DKA, ARF, appy, cholecystitis, CVA, Diverticulitis, Homicidal, Suicidal, threat to staff... and all critical care pts) @ -Spinal cord mass effect has potential to cause paraplegia - Lab Data Result diagrams: 04/27/25 02:57 04/27/25 02:57 Lab Results 04/26/25 04/26/25 Range/Units 19:01 19:01 WBC 5.93 (4.50-10.00) 10*3/uL RBC 5.07 (4.10-5.20) 10*6/uL Hgb 17.8 H (12.0-15.0) g/dL Hct 51.4 H (37.2-46.3) % MCV 101.4 H (80.0-97.0) fL MCH 35.1 H (27.0-32.0) pg MCHC 34.6 (32.0-37.0) g/dL Plt Count 232 (140-440) 10*3/uL MPV 9.1 L (9.5-12.2) fL Immature Gran % (Auto) 0.2 % Neutrophils % 60.1 % Lymphocytes % 26.5 % Monocytes % 11.5 % Eosinophils % 0.7 % Basophils % 1.0 % Immature Gran # 0.01 (0.00-0.04) 10*3/uL Neutrophils # 3.57 (1.80-7.70) 10*3/uL Lymphocytes # 1.57 (0.90-5.00) 10*3/uL Monocytes # 0.68 (0.20-1.00) 10*3/uL Eosinophils # 0.04 (0.04-0.35) 10*3/uL Basophils # 0.06 (0.00-0.10) 10*3/uL Sodium 134 L (137-145) mmol/L Potassium 4.1 (3.5-5.1) mmol/L Chloride 94 L (98-107) mmol/L Carbon Dioxide 28 (22-30) mmol/L Anion Gap 12 mmol/L BUN 6 L (7-17) mg/dL Creatinine 0.43 L (0.52-1.04) mg/dL Est GFR (CKD-EPI)AfAm >90 (>60 ml/min/1.73 sqM) Est GFR (CKD-EPI)NonAf >90 (>60 ml/min/1.73 sqM) Glucose 83 (74-99) mg/dL Calcium 10.2 (8.4-10.2) mg/dL Total Bilirubin 0.6 (0.2-1.3) mg/dL AST 33 (14-36) U/L ALT 22 (4-34) U/L Alkaline Phosphatase 92 (38-126) U/L Total Protein 8.4 H (6.3-8.2) g/dL Albumin 4.8 (3.5-5.0) g/dL Disposition Clinical Impression: Thoracic compression fracture Disposition: ADMITTED IP TO THIS [facility] Condition: Fair Time of Disposition: 18:01 Decision Date: 04/26/25 Decision Time: 18:01
[2025-04-26] MEDS ORDERED: NALOXONE 0.4 MG/ML 1 ML VIAL IV PRN (18:01)
[2025-04-26] MEDS ORDERED: ACETAMINOPHEN TAB 325 MG TAB PO PRN (18:01)
[2025-04-26 19:09] LABS: Basophils # (A) 0.06 10*3/uL (0.00-0.10); Eosinophils # (A) 0.04 10*3/uL (0.04-0.35); Eosinophils % (A) 0.7 %; HCT 51.4 % (37.2-46.3); HGB 17.8 g/dL (12.0-15.0); Lymphocytes # (A) 1.57 10*3/uL (0.90-5.00); Lymphocytes % (A) 26.5 %; MCH 35.1 pg (27.0-32.0); MCHC 34.6 g/dL (32.0-37.0); MCV 101.4 fL (80.0-97.0); Mean Platelet Volume 9.1 fL (9.5-12.2); Monocytes # (A) 0.68 10*3/uL (0.20-1.00); Monocytes % (A) 11.5 %; Neutrophils # (A) 3.57 10*3/uL (1.80-7.70); Neutrophils % (A) 60.1 %; Platelet Count 232 10*3/uL (140-440); RBC 5.07 10*6/uL (4.10-5.20); RDW 12.3 % (11.5-14.5); WBC 5.93 10*3/uL (4.50-10.00)
[2025-04-26 19:25] LABS: ALT 22 U/L (4-34); AST 33 U/L (14-36); African American GFR (CKD) >90 (>60 ml/min/1.73 sqM); Albumin 4.8 g/dL (3.5-5.0); Alkaline Phosphatase 92 U/L (38-126); Anion Gap 12 mmol/L; Blood Urea Nitrogen 6 mg/dL (7-17); Calcium 10.2 mg/dL (8.4-10.2); Carbon Dioxide 28 mmol/L (22-30); Chloride 94 mmol/L (98-107); Glucose 83 mg/dL (74-99); Non-African American GFR(CKD) >90 (>60 ml/min/1.73 sqM); Potassium 4.1 mmol/L (3.5-5.1); Sodium 134 mmol/L (137-145); Total Bilirubin 0.6 mg/dL (0.2-1.3); Total Protein 8.4 g/dL (6.3-8.2)
[2025-04-26] MEDS: HYDROmorphone 1 MG/ML 1 ML SYRINGE IVP PRN (19:38)
[2025-04-26] MEDS ORDERED: ALBUTEROL NEBULIZED 2.5 MG/3 ML INHALATION PRN (20:06)
[2025-04-26] MEDS ORDERED: NICOTINE 21MG/24HR PATCH TRANSDERM PRN (20:09)
[2025-04-26] MEDS ORDERED: LORazepam 0.5 MG TAB PO PRN (20:09)
[2025-04-26] MEDS ORDERED: LORazepam 1 MG TAB PO PRN ×3 (20:09)
[2025-04-26] MEDS: METOPROLOL TARTRATE 50 MG TAB PO SCH (20:24)
[2025-04-26] MEDS: LACTATED RINGERS 500 ML IV ONE (20:24)
--- NOTE | 2025-04-26 20:57 | P.HPIM ---
History of Present Illness H&P Date: 04/26/25 History of present illness; 59-year-old female with PMH of COPD not on home oxyegn, hypertension, GERD, history of chronic sinus tachycardia and history of DVT in the left upper leg who presents to the ED sent by [facility] due to a compression fracture at the T12 level of her spine. She injured her back while attempting to move a recliner on 04/16/2025. She states she heard a "pop" in her mid/low back while moving the recliner and since that time has been using motrin to help control her pain. She has no associated weakness, numbness or tingling and has had no changes in bowel or urinary habits since the injury. Social history: - Smoking: Current 1/2 pack/day smoker, former 1 pack/day smoker for a total of ~47 years - Alcohol use: Everyday drinker, approximately 6 cans of beer daily - Recreational drug use: History of marijuana use Labratory review: - WBC 5.93, hemoglobin 17.8, hematocrit 51.4, MCV 101.4, platelet 232; sodium 134, potassium 4.1, chloride 94, bicarb 28, BUN 6, Cr 0.43, Total bilirubin .6, AST 33, ALT 22, Alk Phos 92, Calcium 10.2 - Magnesium and phosphorous ordered, currently pending Imaging: -EKG ordered, currently pending at time of dictation Vitals: - Blood pressure 169/97, heart rate 82, respiratory 18, SpO2 95% on room air Patient admitted to internal medicine service REVIEW OF SYSTEMS: Pertinent positives and negatives noted in HPI. The rest of the 14-point review of systems is negative. Physical Exam: General: nontoxic, no distress, appears at stated age Derm: warm, dry, intact Head: atraumatic, normocephalic, symmetric Eyes: EOMI, anicteric sclera Mouth: no lip lesion, mucus membranes moist Cardiovascular: S1 S2 reg, no murmur, rubs, or gallops Lungs: CTA bilateral, no rales, no accessory muscle use; diminished breath sounds throughout Abdominal: soft, non-tender to palpataion, no appreciable organomegaly Extremities: no gross muscle atrophy, no edema, no contractures Back: Minimal tenderness to palpation at the level of T12 with step off palpable Neuro: Alert, Oriented, CNII-XII grossly intact, gait normal Psych: well appearing, appropriate affect Assessment and plan 59-year-old female with PMH of hypertension, GERD, history of iron deficiency anemia and history of DVT in the left upper leg who presents to the ED sent by [facility] due to a compression fracture at the T12 level of her spine. #Compression fracture of the T12 vertebra - Minimal tenderness to palpation on physical examination at the level of T12; no weakness, numbness or tingling - Pain control with Tylenol as needed, can consider escalating if needed; pain control can be deferred to orthopedic surgery once they evaluate - Chart from [facility] reviewed as well as CT scan with discovery of T12 compression fracture and retropulsion into spinal cord with subsequent mass effect onto the thecal sac and possible conus - Orthopedic surgery consulted #Chronic sinus tachycardia - Continue home metoprolol - States she has undergone full cardiac workup which was unremarkable - Cardiac monitoring #Nicotine dependence - Current 1/2 pack per day smoker, former 1 pack/day smoker for a total of 47 years - Nicotine patch available as needed; she states she does not believe she will need it #Alcohol dependence - Current 6 beer/day drinker - Ativan PO per [facility] protocol - Thiamine, folic acid, multivitamin daily - Seizure precautions #Polycythemia and Macrocytosis, possibly secondary to poor intake, vitamin deficiency, alcohol abuse, etc... - Hgb 17.8, Hct 51.4 and MCV 101. 4 on admission - 500 cc LR bolus given in ED - TSH, Vitamin B12 and folate level ordered, currently pending - Continue to monitor CBC Chronic conditions: #Hypertension #Hyperlipidemia #COPD - Utilizes home inhalers on an as needed basis, stating she does not use them very often, 1-2 week - Inhalers available as needed - Continue home medications GI prophylaxis: None DVT prophylaxis: SCDs The patient is admitted with an anticipated more than than 2 midnight stay for evaluation of compression fracture of the T12 vertebra. CODE STATUS: Full code Discussed with: Patient Anticipated discharge place: Home Dictation was produced using [employer] dictation software. please excuse any grammatical, word or spelling errors. Pedro Wilkins MD PGY-1 IM Attestation : I have seen and evaluated the patient today with . I reviewed the residents note and agree with the assessment and plan. Patient is a 59-year-old female with a past medical history of COPD not on home oxygen, essential hypertension, GERD and history of chronic sinus tachycardia currently on metoprolol. She does have remote history of DVT where she was treated with oral anticoagulation and completed treatment. Patient presents with T12 compression fracture. She is complaining of back pain that is nonradiating. Ortho was consulted and pending further recommendations. Patient likely will need kyphoplasty via IR . Past Medical History Past Medical History: Blood Disorder, Deep Vein Thrombosis (DVT), GERD/Reflux, Hypertension Additional Past Medical History / Comment(s): brain aneurysm,IRON DEFICIENCY ANEMIA. DVT LT THIGH-04/23/23-STILL HAS MILD EDEMA TO LEG History of Any Multi-Drug Resistant Organisms: None Reported Past Surgical History: Section, Tonsillectomy Past Anesthesia/Blood Transfusion Reactions: No Reported Reaction Past Psychological History: No Psychological Hx Reported Smoking Status: Current every day smoker Past Alcohol Use History: Daily Past Drug Use History: None Reported - Past Family History Mother Family Medical History: No Reported History Medications and Allergies Home Medications Medication Instructions Recorded Confirmed Type Albuterol Inhaler [Ventolin Hfa 2 puff INHALATION RT-Q4H PRN 04/26/25 04/26/25 History Inhaler] Aspirin EC [Ecotrin Low Dose] 81 mg PO DAILY 04/26/25 04/26/25 History Fluticasone/Umeclidin/Vilanter 1 puff INHALATION RT-DAILY 04/26/25 04/26/25 History [Trelegy Ellipta 200-62.5-25] Levalbuterol Nebulized [Xopenex 1.25 mg INHALATION RT-BID 04/26/25 04/26/25 History Nebulized] Metoprolol Tartrate [Lopressor] 50 mg PO BID-W/MEALS 04/26/25 04/26/25 History Rosuvastatin Calcium 5 mg PO DAILY 04/26/25 04/26/25 History Allergies Allergy/AdvReac Type Severity Reaction Status Date / Time codeine Allergy Nausea & Verified 04/26/25 18:28 Vomiting naproxen [From Naprosyn] Allergy Anaphylaxis Verified 04/26/25 18:28 Physical Exam Vitals: Vital Signs Temp Pulse Resp BP Pulse Ox 04/26/25 17:04 98.0 F 82 18 169/97 95 Intake and Output 04/26/25 04/26/25 04/26/25 06:59 14:59 22:59 Other: Weight 74.843 kg Results CBC & Chem 7: 04/26/25 19:01 04/26/25 19:01 Labs: Abnormal Lab Results - Last 24 Hours (Table) 04/26/25 Range/Units 19:01 Hgb 17.8 H (12.0-15.0) g/dL Hct 51.4 H (37.2-46.3) % MCV 101.4 H (80.0-97.0) fL MCH 35.1 H (27.0-32.0) pg MPV 9.1 L (9.5-12.2) fL
[2025-04-26] MEDS: SYMBICORT 160-4.5 MCG INHALER INHALATION SCH (21:11)
[2025-04-26] MEDS: HYDROcodone/APAP 5-325MG 1 EACH TAB PO PRN (23:32)
[2025-04-27 03:51] LABS: Basophils # (A) 0.08 10*3/uL (0.00-0.10); Basophils % (A) 1.3 %; Eosinophils # (A) 0.06 10*3/uL (0.04-0.35); HGB 14.9 g/dL (12.0-15.0); Lymphocytes # (A) 1.29 10*3/uL (0.90-5.00); Lymphocytes % (A) 20.8 %; MCH 34.7 pg (27.0-32.0); MCHC 33.9 g/dL (32.0-37.0); MCV 102.3 fL (80.0-97.0); Mean Platelet Volume 9.6 fL (9.5-12.2); Monocytes # (A) 0.69 10*3/uL (0.20-1.00); Monocytes % (A) 11.1 %; Neutrophils # (A) 4.05 10*3/uL (1.80-7.70); Neutrophils % (A) 65.5 %; Platelet Count 247 10*3/uL (140-440); RDW 12.2 % (11.5-14.5); WBC 6.19 10*3/uL (4.50-10.00)
[2025-04-27 04:09] LABS: ALT 19 U/L (4-34); AST 27 U/L (14-36); African American GFR (CKD) >90 (>60 ml/min/1.73 sqM); Albumin 3.6 g/dL (3.5-5.0); Albumin/Globulin Ratio 1.3; Alkaline Phosphatase 80 U/L (38-126); Anion Gap 9 mmol/L; Blood Urea Nitrogen 12 mg/dL (7-17); Calcium 9.5 mg/dL (8.4-10.2); Carbon Dioxide 27 mmol/L (22-30); Chloride 95 mmol/L (98-107); Globulin 2.8 g/dL; Glucose 80 mg/dL (74-99); Non-African American GFR(CKD) >90 (>60 ml/min/1.73 sqM); Sodium 131 mmol/L (137-145); Total Bilirubin 0.4 mg/dL (0.2-1.3); Total Protein 6.4 g/dL (6.3-8.2)
[2025-04-27] MEDS: lisinopriL 5 MG TAB PO SCH (08:47)
[2025-04-27] MEDS: FOLIC ACID 1 MG TAB PO SCH (08:47)
[2025-04-27] MEDS: ATORVASTATIN 10 MG TAB PO SCH (08:47)
[2025-04-27] MEDS: THIAMINE 100 MG TAB PO SCH (08:48)
[2025-04-27] MEDS: MULTIVITAMINS, THERA 1 EACH TAB PO SCH (08:48)
[2025-04-27] MEDS ORDERED: NON FORMULARY DRUG (Fluticasone/Umeclidin/Vilanter [Trelegy Ellipta 100-62.5-25] 1 EACH Bl PO SCH (09:00)
[2025-04-27] MEDS: TIOTROPIUM 2.5 MCG INHALER INHALATION SCH (09:51)
--- NOTE | 2025-04-27 11:30 | P.CNOR ---
History of Present Illness - [facility] Consult date: 04/27/25 Consult reason: fracture (T12 compression fracture) History of present illness: Patient is a 59-year-old female who was transferred from [facility] to [facility] with concerns for a compression fracture involving the T12 vertebral body. Apparently the patient was moving some furn iture at home about 10 days ago when she felt a loud popping noise in pain immediately in that thoracic region. Apparently the pain has gotten worse since the initial injury which prompted her to go to the hospital. A CT scan of the lumbar spine was done which according to other notes states that there was a vertebral body compression fracture of the T12 area with retropulsion, she was then transferred here for orthopedic spine workup. Patient was admitted under internal medicine. Patient was evaluated at bedside, she is resting comfortably. She notices most pain in the lower thoracic spine with movement. She feels that the pain has progressively gotten worse since the initial injury. She denies any loss of bowel or bladder function at this time. She has been dealing with some cons tipation over the last 4 to 5 days. She denies any numbness or tingling to the bilateral lower extremities or upper extremities. She denies any marilyn weakness to the bilateral upper or lower extremities. Besides a twisting injury when moving the furniture, she denies any acute trauma. Patient is a daily drinker and smoker. Patient normally utilizes no assistive devices for ambulation. She has no other orthopedic complaints at this time. Review of Systems Constitutional: Reports as per HPI Past Medical History Past Medical History: Blood Disorder, Deep Vein Thrombosis (DVT), GERD/Reflux, Hypertension Additional Past Medical History / Comment(s): brain aneurysm,IRON DEFICIENCY ANEMIA. DVT LT THIGH-04/23/23-STILL HAS MILD EDEMA TO LEG History of Any Multi-Drug Resistant Organisms: None Reported Past Surgical History: Section, Tonsillectomy Past Anesthesia/Blood Transfusion Reactions: No Reported Reaction Past Psychological History: No Psychological Hx Reported Smoking Status: Current every day smoker Past Alcohol Use History: Daily Additional Past Alcohol Use History / Comment(s): WAS SMOKING 1PPD SINCE AGE 14- NOW DOWN TO ABOUT 1/2 PPD SINCE DVT. DRINKS 6 BEERS DAILY-PT AWARE SHE NEEDS TO REFRAIN FROM USE FOR AT LEAST 24 HOURS PRIOR TO PROCEDURE Past Drug Use History: None Reported Additional Drug Use History / Comment(s): NO LONGER USES - Past Family History Mother Family Medical History: No Reported History Medications and Allergies Home Medications Medication Instructions Recorded Confirmed Type Albuterol Inhaler [Ventolin Hfa 2 puff INHALATION RT-Q4H PRN 04/26/25 04/26/25 History Inhaler] Aspirin EC [Ecotrin Low Dose] 81 mg PO DAILY 04/26/25 04/26/25 History Fluticasone/Umeclidin/Vilanter 1 puff INHALATION RT-DAILY 04/26/25 04/26/25 History [Trelegy Ellipta 200-62.5-25] Levalbuterol Nebulized [Xopenex 1.25 mg INHALATION RT-BID 04/26/25 04/26/25 History Nebulized] Metoprolol Tartrate [Lopressor] 50 mg PO BID-W/MEALS 04/26/25 04/26/25 History Rosuvastatin Calcium 5 mg PO DAILY 04/26/25 04/26/25 History Allergies Allergy/AdvReac Type Severity Reaction Status Date / Time codeine Allergy Nausea & Verified 04/26/25 18:28 Vomiting naproxen [From Naprosyn] Allergy Anaphylaxis Verified 04/26/25 18:28 Physical Examination Gen: AOx3, NAD VSS stable at this time Integument: No open lesions or sores are visualized throughout the cervical, thoracic and lumbar spine Palpation: Tenderness with palpation to the midline and paraspinal region of the T12 area ROM: Full range of motion in all major muscle groups of the bilateral upper and lower extremities, no focal deficits. Sensory Exam: Senory exam to light touch is intact C5-T1 Senosry exam to light touch is intact L2-S1 Motor: 5/5 strength appreciated the bilateral upper extremities with shoulder elevation, shoulder abduction, elbow extension, elbow flexion, wrist extension, wrist flexion, fleet administrative assistant 5/5 strength appreciated in the bilateral lower extremities with hip flexion, knee extension, knee flexion, plantarflexion, dorsiflexion, EHL, FHL Reflexes: 2/4 in all UE and LE Negative Zulema's bilaterally Negative clonus bilaterally Special Test: Logroll maneuver reproduces no pain bilaterally Straight leg raise bilaterally negative Results - Labs Labs: Abnormal Lab Results - Last 24 Hours (Table) 04/26/25 04/26/25 04/27/25 Range/Units 19:01 19:01 02:57 Hgb 17.8 H (12.0-15.0) g/dL Hct 51.4 H (37.2-46.3) % MCV 101.4 H 102.3 H (80.0-97.0) fL MCH 35.1 H 34.7 H (27.0-32.0) pg MPV 9.1 L (9.5-12.2) fL Sodium 134 L (137-145) mmol/L Chloride 94 L (98-107) mmol/L BUN 6 L (7-17) mg/dL Creatinine 0.43 L (0.52-1.04) mg/dL Total Protein 8.4 H (6.3-8.2) g/dL 04/27/25 Range/Units 02:57 Hgb (12.0-15.0) g/dL Hct (37.2-46.3) % MCV (80.0-97.0) fL MCH (27.0-32.0) pg MPV (9.5-12.2) fL Sodium 131 L (137-145) mmol/L Chloride 95 L (98-107) mmol/L BUN (7-17) mg/dL Creatinine 0.46 L (0.52-1.04) mg/dL Total Protein (6.3-8.2) g/dL H & H 04/26/25 04/27/25 Range/Units 19:01 02:57 Hgb 17.8 H 14.9 (12.0-15.0) g/dL Hct 51.4 H 44.0 (37.2-46.3) % Result Diagrams: 04/27/25 02:57 04/27/25 02:57 Assessment and Plan Assessment: T12 vertebral body compression fracture Nicotine dependence Alcohol dependence Other medical comorbidities Plan: Imaging: I was unable to review images of CT scan of the thoracic spine that apparently was done at [facility]. A new thoracolumbar CT scan without contrast has been ordered for further evaluation Plan: I was able to discuss the case, this to include physical exam findings and the current imaging reports with Dr. Thompson. Patient has been tentatively scheduled for a T11-L1 posterior stabilization with open fracture treatment of T12 4 04/28/2025 Patient was made aware that we would be doing further imaging test and we will discuss this further with her including the surgical procedure Pain control, utilize Tylenol, low-dose muscle relaxer, Toradol versus oral pain medication DVT prophylaxis per primary medical service will hold medications at this time until after surgery PT/OT evaluation Other medical specialty recommendations appreciated Further recommendations to follow Time with Patient: Less than 30
--- NOTE | 2025-04-27 13:45 | P.PN ---
Subjective Progress Note Date: 04/27/25 Hospital Course: 59-year-old female with PMH of COPD not on home oxyegn, hypertension, GERD, hi story of chronic sinus tachycardia and history of DVT in the left upper leg tobacco use disorder who presents to the ED sent by [facility] due to a compression fracture at the T12 level of her spine. She injured her back while attempting to move a recliner on 04/16/2025. She states she heard a "pop" in her mid/low back while moving the recliner and since that time has been using motrin to help control her pain. She has no associated weakness, numbness or tingling and has had no changes in bowel or urinary habits since the injury. The ER workup showed WBC 5.93, hemoglobin 17.8, hematocrit 51.4, MCV 101.4, platelet 232; sodium 134, potassium 4.1, chloride 94, bicarb 28, BUN 6, Cr 0.43, Total bilirubin .6, AST 33, ALT 22, Alk Phos 92, Calcium 10.2.Chart from [facility] reviewed as well as CT scan with discovery of T12 compression fracture and retropulsion into spinal cord with subsequent mass effect onto the thecal sac and possible conus. Patient admitted to internal medicine with orthopedic surgery on consult, plan for surgery on 04/28. 04/27: Patient was seen and examined at bedside, no acute events overnight, complains of lower back pain, otherwise feeling well, tolerates diet, mentioned that she is constipated and asked for stool softeners which will be ordered. Pertinent positives and negatives as discussed above, a complete review of systems was performed and all other systems are negative. Vitals Signs Reviewed. General: [nontoxic], [no distress], [appears at stated age] Derm: [warm], [dry] Head: [atraumatic], [normocephalic], [symmetric] Eyes: [EOMI], [no lid lag], [anicteric sclera] Mouth: [no lip lesion], [mucus membranes moist] Cardiovascular: [S1S2 reg], [no murmur] Lungs: [CTA bilateral], [no rhonchi, no rales] , [no accessory muscle use] Abdominal: [soft], [ nontender to palpation], [no guarding], [no appreciable organomegaly] Ext: [no gross muscle atrophy], [no edema], [no contractures], tenderness at the level of T12 Neuro: [ CN II-XI grossly intact], [no focal neuro deficits] Psych: [Alert], [oriented], [appropriate affect] Assessment and Plan: Compression fracture of the T12 vertebra - Pain control with Tylenol 650 every 6 hours as needed, [place] 5 every 4 hours as needed - Orthopedic surgery consulted, n.p.o. at midnight for surgery on 04/28, discussed with case management Chronic sinus tachycardia - Continue home metoprolol 50 mg twice daily - Cardiac monitoring Nicotine dependence - Current 1/2 pack per day smoker, former 1 pack/day smoker for a total of 47 years - Nicotine patch available as needed; she states she does not believe she will need it Alcohol dependence - Current 6 beer/day drinker - Ativan PO per [facility] protocol - Thiamine, folic acid, multivitamin daily - Seizure precautions Hyponatremia -Switch fluid to NS at 75 cc/h, monitor BMP daily Polycythemia likely due to dehydration and Macrocytosis, possibly secondary to poor intake, vitamin deficiency, alcohol abuse, etc... - Hgb 17.8, Hct 51.4 and MCV 101. 4 on admission, hemoglobin down trended on IV hydration to 14.9 - TSH, Vitamin B12 and folate level ordered, TSH normal 1.6, folate 10.5, B12 259 - Continue to monitor CBC Constipation -Continue MiraLAX. daily as needed, added senna daily Chronic conditions: Hypertension Hyperlipidemia COPD - Utilizes home inhalers on an as needed basis, stating she does not use them very often, 1-2 week - Inhalers available as needed, Spiriva 2 puffs daily - Continue home medications: Lisinopril 5 mg p.o. daily, atorvastatin 10 mg p.o. daily, metoprolol 50 mg p.o. twice daily DVT prophylaxis: SCDs CODE STATUS: Full code Discussed with: Patient, CM Anticipated discharge place: TBD Objective - Vital Signs Vital signs: Vital Signs Temp 97.8 F 04/27/25 07:52 Pulse 67 04/27/25 07:52 Resp 16 04/27/25 07:52 BP 147/79 04/27/25 07:52 Pulse Ox 93 L 04/27/25 07:52 FiO2 Intake & Output 04/26/25 04/27/25 04/27/25 18:59 06:59 18:59 Weight 74.843 kg 74.843 kg Other: # Voids 1 - Labs CBC & Chem 7: 04/27/25 02:57 04/27/25 02:57 Labs: Abnormal Lab Results - Last 24 Hours (Table) 04/26/25 04/26/25 04/27/25 Range/Units 19:01 19:01 02:57 Hgb 17.8 H (12.0-15.0) g/dL Hct 51.4 H (37.2-46.3) % MCV 101.4 H 102.3 H (80.0-97.0) fL MCH 35.1 H 34.7 H (27.0-32.0) pg MPV 9.1 L (9.5-12.2) fL Sodium 134 L (137-145) mmol/L Chloride 94 L (98-107) mmol/L BUN 6 L (7-17) mg/dL Creatinine 0.43 L (0.52-1.04) mg/dL Total Protein 8.4 H (6.3-8.2) g/dL 04/27/25 Range/Units 02:57 Hgb (12.0-15.0) g/dL Hct (37.2-46.3) % MCV (80.0-97.0) fL MCH (27.0-32.0) pg MPV (9.5-12.2) fL Sodium 131 L (137-145) mmol/L Chloride 95 L (98-107) mmol/L BUN (7-17) mg/dL Creatinine 0.46 L (0.52-1.04) mg/dL Total Protein (6.3-8.2) g/dL
--- NOTE | 2025-04-27 14:00 | CT ---
EXAMINATION TYPE: CT thor lumbar spine wo con DATE OF EXAM: 04/27/2025 COMPARISON: None CLINICAL INDICATION: Female, 59 years old with history of T12 vetebral body compression fracture; PHH , t12 vertebral body compression fracture CT DLP: 979.5 mGycm Automated exposure control for dose reduction was used. FINDINGS: There is a moderate superior endplate compression fracture of T12 with approximately 25-30% retropuls ion. There is a mild superior endplate compression fracture of T11 without retropulsion. Thoracic and lumbar vertebral segments are normal in alignment and there is no subluxation. The disc spaces are well-maintained and there is no significant degenerative disc there are no thorac ic or lumbar disc herniations. Paraspinal soft tissues are unremarkable. There is no spinal stenosis. The visualized sacrum and SI joints are normal. IMPRESSION: 1. Moderate superior endplate compression fracture of T12 with 25-30% retropulsion. 2. Mild superior endplate compression fracture of T11. 3. No lumbar disc herniation or spinal stenosis. 4. No significant degenerative disc disease throughout the thoracic and lumbar region. IMPRESSION: [facility], Workstation: CARLOS ENRIQUE, 04/27/2025 1:58 PM
[2025-04-27] MEDS: SENNOSIDES 8.6 MG TAB PO SCH (16:36)
[2025-04-27] MEDS: SODIUM CHLORIDE 0.9% 1,000 ML IV SCH (21:30)
[2025-04-28 08:55] LABS: Basophils # (A) 0.07 X 10*3/uL (0.00-0.10); Basophils % (A) 1.1 %; Eosinophils # (A) 0.07 X 10*3/uL (0.04-0.35); Eosinophils % (A) 1.1 %; HCT 45.7 % (37.2-46.3); HGB 15.2 g/dL (12.0-15.0); Lymphocytes # (A) 1.76 X 10*3/uL (0.90-5.00); Lymphocytes % (A) 27.2 %; MCH 34.3 pg (27.0-32.0); MCHC 33.3 g/dL (32.0-37.0); MCV 103.2 FL (80.0-97.0); Mean Platelet Volume 9.8 FL (9.5-12.2); Monocytes # (A) 0.76 X 10*3/uL (0.20-1.00); Monocytes % (A) 11.7 %; NRBC Per 100 WBC 0 X 10*3/uL (0.00-0.01); Neutrophils % (A) 58.6 %; Platelet Count 233 X 10*3/uL (140-440); RBC 4.43 X 10*6/uL (4.10-5.20); RDW 12.1 % (11.5-14.5); WBC 6.48 X 10*3/uL (4.50-10.00)
[2025-04-28 08:59] LABS: Blood Urea Nitrogen 8.7 mg/dL (9.0-27.0); Calcium 9.1 mg/dL (8.7-10.3); Carbon Dioxide 26.2 mmol/L (21.6-31.8); Chloride 98 mmol/L (96-109); Glucose 88 mg/dL (70-110); Potassium 4.3 mmol/L (3.5-5.5); Sodium 136 mmol/L (135-145)
[2025-04-28] MEDS: IV FLUID CONTINUATION 1,000 ML IV ONE (11:44)
[2025-04-28] MEDS: ONDANSETRON 4 MG/2 ML VIAL IVP PRN (12:21)
[2025-04-28] MEDS: DEXAMETHASONE SOD PHOSPHATE 4 MG/ML 1 ML VIAL IVP STA (12:22)
[2025-04-28] MEDS: MIDAZOLAM 2 MG/2 ML VIAL IV ONE (12:32)
--- NOTE | 2025-04-28 12:32 | P.PN ---
Progress Note - Text Progress Note Date: 04/28/25 [facility] PROVIDER: PIETRO Apr 28, 2025 12:00?PM SPINE SURGERY CLINICAL AND RISK REVIEW Raven Guerrero is a 59 yo female presented as transfer from [facility] after moving furniture 10 days ago with her . She felt a pop in her back and had severe pain presenting for evaluation of back pain. It was my pleasure to have seen and examined Raven Guerrero . In our visit today we have had a chance to go over subjective complaints, physical examination findings and treatments including the natural course history without intervention and various interventional options. The patient's imaging demonstrates the following findings: T12 AOA4 burst fracture with T11 compression fracture 20% Local kyphosis due to fracture at T12 with retropulsion and stenosis On a physical exam,Raven Guerrero demonstrates the following findings: Back pain, LE paresthesias Inability to perform ADLs due to pain and debility I have explained to the patient that as their condition progresses it will cause further neurological deficits and eventual paralysis. Based on the patients imaging, physical exam, and the rapid progression and disabling nature of their symptoms, at this time I recommend surgery in the form of a: OPEN TREATMENT T12 FRACTURE WITH T11-L1 STABILIZATION . I discussed the risk and benefits of this procedure at length with Raven Guerrero . The patient has agreed to consider pursuing the procedure above mentioned. Prior to surgery, they should follow up with her PCP (Cardio, ID, IM etc) for clearance. Questions were invited and answered, and the patient wishes to proceed as outlined below. Currently, I am recommending: OPEN TREATMENT T12 FRACTURE WITH T11-L1 STABILIZATION Obtain appropriate presurgical workup and clearances as discussed with the patient. Review of surgical risks and benefits as well as an educational packet on the proposed surgical procedure. Risks: All surgical procedures come with inherent risks, including those related to positioning, anesthesia, intraoperative findings, and postoperative complications. It is important to understand that surgery does not come with any guarantee of a successful outcome as complications and adverse events are always possible. The patient was given a handout in the office today discussing the surgical procedure and risks associated with the intervention, both of which were discussed with the patient. These risks include but are not limited to the following: Experiencing same, different or even worse symptoms in back, neck, arms, or legs compared to before surgery. Requiring further surgery or other forms of treatment presently or at some time in the future at same or other levels of the intended spine surgery. On an extreme but fortunately relatively rare basis severe complications such as blindness, stroke, heart attack, temporary and/or permanent nerve injury, paralysis, coma, or may occur, sometimes without known explanation. Surgical complications may include but are not limited to risk of infection, fluid accumulation in the surgical dissection site, including a seroma or hematoma, that requires additional surgery, wound drainage, bleeding, new numbness or weakness, vision changes/loss, spinal fluid leakage, non-healing and/or infected incision, headaches, difficulty or inability to swallow, hoarseness, hemopneumothorax, pneumothorax, impotence, retrograde ejaculation, vaginal dryness; injury to nerves, spinal cord, blood vessels, lymphatics or other vital organs (i.e., bowel injury, injury to the great vessels); heterotopic bone formation; complications related to the hardware such as screws, rods, cages including misplaced hardware, device failure, instrumentation at the wrong spine level, hardware fracture/breakage, or hardware loosening; vertebral failure of the spinal column above or below the newly placed hardware; retained surgical instrumentations or devices and the need for further surgery. Medical risks of the planned spine surgery include but are not limited to generalized Infections to the whole body or local areas outside of the surgical site (sepsis), heart attack, bleeding, anaphylaxis, meningitis, seizure, epilepsy, hearing loss, burn fonseca, laceration of the head or other areas of the body, bruising, hypersensitivity of the skin, bladder over distension; allergic reaction; shoulder injury related to positioning; fat, blood and air clots to other areas of the body like heart, lungs, brain; failure of internal organs such as lungs, kidneys, liver and excessive bleeding. If blood transfusions are necessary, note that transfusions may cause intolerance reactions such as anaphylaxis or other complex reactions. Despite best efforts, the results of spine surgery might not heal in terms of bone, soft tissues such as skin, fascia, ligaments, and joints. Additionally, in order to achieve best possible results, spine surgery may be carried out beyond the initially planned levels and involve decompression, fusion including insertion of hardware at levels other than the original intended area of surgical interest change some portions of the procedure in order to ensure the best possible outcomes. With spine surgery and spinal fusion, there are different off label uses of instrumentation (devices, implants and hardware) as well as biological substances (bone morphogenic proteins, demineralized bone matrix) as well as using extra bone from allograft sources (i.e. cadaver bone) or autograft (iliac crest bone, ribs, or the spine itself). The patient has been given information about these practices and their inherent risks and benefits. The patient has had a chance to review all the listed information, has been given print outs detailing this information, and has had all his/her questions answered to their satisfaction. It was my pleasure to have seen and examined Raven Guerrero . In our visit today we have had a chance to go over my understanding of our patient's current condition, the natural course history without intervention and various interventional options. Questions were invited and answered, and the patient wishes to proceed as outlined above. I have seen and examined the patient for 25 minutes and we have spent more than 50% of the time in repeat and detailed counseling about the patient's condition, its natural course history without and as much as can be predicted with surgery and re-review of various surgical treatment options. In conclusion, Raven Guerrero and their family requested we proceed with the above suggested surgery and are willing to accept risks and limitations of the suggested surgery as the nature of the disease process and our best attempts at treatment for the condition. In our visit today the patient and I have had a chance to go over my understanding of their current condition, the natural course history without intervention and various interventional options. Questions were invited and answered, and the patient wishes to proceed as outlined above. I will be sure to keep you updated after the patient returns here for further follow-up. Thank you again for your referral. Please do not hesitate to contact me if you have any further questions. Signed and authenticated by: Apr 28, 2025 12:29?PM EDT DO Asher Hernandez [facility] [address] [address] This document is confidential, intended only for the named recipient(s) and may contain information that is privileged or exempt from disclosure under applicable law. If you are not the intended recipient(s), you are notified that the dissemination, distribution or copying of this information is strictly prohibited. If you received this message in error, please notify the sender then delete this message.
[2025-04-28] MEDS ORDERED: LIDOCAINE 1% INJ 10MG/ML (20 ML MDV) ONE (13:10)
[2025-04-28] MEDS ORDERED: ePHEDrine 50 MG/ML 1 ML VIAL ONE (13:10)
[2025-04-28] MEDS ORDERED: KETAMINE HCL IN 0.9 % NACL 50 MG/5 ML SYRINGE ONE (13:10)
[2025-04-28] MEDS ORDERED: SUCCINYLCHOLINE CHLORIDE 200 MG/10 ML VIAL IV ONE (13:10)
[2025-04-28] MEDS ORDERED: NEOSTIGMINE 1 MG/ML 10 ML VIAL ONE (13:10)
[2025-04-28] MEDS ORDERED: MIDAZOLAM 2 MG/2 ML VIAL ONE (13:10)
[2025-04-28] MEDS ORDERED: ROCURONIUM 10 MG/ML (5 ML VIAL) IV ONE (13:10)
[2025-04-28] MEDS ORDERED: PROPOFOL 10 MG/ML 20 ML VIAL IV ONE (13:10)
[2025-04-28] MEDS ORDERED: fentaNYL (PF) 50 MCG/ML 2 ML AMP ONE (13:10)
[2025-04-28] MEDS ORDERED: TRANEXAMIC 1,000 MG/100ML-NACL PREMIX BAG ONE (13:10)
[2025-04-28] MEDS ORDERED: PHENYLEPHRINE-0.9% NACL SYG 1,000 MCG/10 ML SYRINGE ONE (13:10)
[2025-04-28] MEDS ORDERED: GLYCOPYRROLATE 0.2 MG/ML 2 ML VIAL ONE (13:10)
[2025-04-28] MEDS: SODIUM CHLORIDE 0.9% 100 ML with ceFAZolin 2,000 MG IV ONE (13:15)
[2025-04-28] MEDS: LIDOCAINE 2%-EPI 1:100,000 20 ML VIAL SQ ONE (13:55)
[2025-04-28] MEDS: BUPIVACAINE (PF) 0.5% 30 ML VIAL SQ ONE (13:55)
[2025-04-28] MEDS: IOPAMIDOL M200 10 ML VIAL MISCELLANE ONE (13:55)
[2025-04-28] MEDS: LACTATED RINGERS 1,000 ML IV ONE ×2 (14:02→16:04)
--- NOTE | 2025-04-28 14:21 | P.PN ---
Subjective Progress Note Date: 04/28/25 Hospital Course: 59-year-old female with PMH of COPD not on home oxyegn, hypertension, GERD, hi story of chronic sinus tachycardia and history of DVT in the left upper leg tobacco use disorder who presents to the ED sent by [facility] due to a compression fracture at the T12 level of her spine. She injured her back while attempting to move a recliner on 04/16/2025. She states she heard a "pop" in her mid/low back while moving the recliner and since that time has been using motrin to help control her pain. She has no associated weakness, numbness or tingling and has had no changes in bowel or urinary habits since the injury. The ER workup showed WBC 5.93, hemoglobin 17.8, hematocrit 51.4, MCV 101.4, platelet 232; sodium 134, potassium 4.1, chloride 94, bicarb 28, BUN 6, Cr 0.43, Total bilirubin .6, AST 33, ALT 22, Alk Phos 92, Calcium 10.2.Chart from [facility] reviewed as well as CT scan with discovery of T12 compression fracture and retropulsion into spinal cord with subsequent mass effect onto the thecal sac and possible conus. Patient admitted to internal medicine with orthopedic surgery on consult, plan for surgery on 04/28. 04/27: Patient was seen and examined at bedside, no acute events overnight, complains of lower back pain, otherwise feeling well, tolerates diet, mentioned that she is constipated and asked for stool softeners which will be ordered. 04/28: Seen and examined at bedside, complains of ongoing pain, responds to pain medications appropriately: No acute events overnight. Patient is medically stable for planned surgery, she is at below average risk for serious complications, any complications, pneumonia, cardiac complications, venous thromboembolism, sepsis, surgical site infection, UTI, renal failure, readmission, return to work, Pertinent positives and negatives as discussed above, a complete review of systems was performed and all other systems are negative. Vitals Signs Reviewed. General: [nontoxic], [no distress], [appears at stated age] Derm: [warm], [dry] Head: [atraumatic], [normocephalic], [symmetric] Eyes: [EOMI], [no lid lag], [anicteric sclera] Mouth: [no lip lesion], [mucus membranes moist] Cardiovascular: [S1S2 reg], [no murmur] Lungs: [CTA bilateral], [no rhonchi, no rales] , [no accessory muscle use] Abdominal: [soft], [ nontender to palpation], [no guarding], [no appreciable organomegaly] Ext: [no gross muscle atrophy], [no edema], [no contractures], tenderness at the level of T12 Neuro: [ CN II-XI grossly intact], [no focal neuro deficits] Psych: [Alert], [oriented], [appropriate affect] Assessment and Plan: Compression fracture of the T12 vertebra - Pain control with Tylenol 650 every 6 hours as needed, [place] 5 every 4 hours as needed - Orthopedic surgery consulted, n.p.o. at midnight for surgery on 04/28, Chronic sinus tachycardia - Continue home metoprolol 50 mg twice daily - Cardiac monitoring Nicotine dependence - Current 1/2 pack per day smoker, former 1 pack/day smoker for a total of 47 years - Nicotine patch available as needed; she states she does not believe she will need it Alcohol dependence - Current 6 beer/day drinker - Ativan PO per [facility] protocol - Thiamine, folic acid, multivitamin daily - Seizure precautions Hyponatremia -Switch fluid to NS at 75 cc/h, monitor BMP daily Polycythemia likely due to dehydration and Macrocytosis, possibly secondary to poor intake, vitamin deficiency, alcohol abuse, etc... - Hgb 17.8, Hct 51.4 and MCV 101. 4 on admission, hemoglobin down trended on IV hydration to 14.9 - TSH, Vitamin B12 and folate level ordered, TSH normal 1.6, folate 10.5, B12 259 - Continue to monitor CBC Constipation -Continue MiraLAX. daily as needed, added senna daily Chronic conditions: Hypertension Hyperlipidemia COPD - Utilizes home inhalers on an as needed basis, stating she does not use them very often, 1-2 week - Inhalers available as needed, Spiriva 2 puffs daily - Continue home medications: Lisinopril 5 mg p.o. daily, atorvastatin 10 mg p.o. daily, metoprolol 50 mg p.o. twice daily DVT prophylaxis: SCDs CODE STATUS: Full code Discussed with: Patient Anticipated discharge place: TBD Objective - Vital Signs Vital signs: Vital Signs Temp 98.4 F 04/28/25 07:29 Pulse 56 L 04/28/25 12:45 Resp 16 04/28/25 12:45 BP 129/77 04/28/25 12:45 Pulse Ox 97 04/28/25 12:45 FiO2 Intake & Output 04/27/25 04/28/25 04/28/25 18:59 06:59 18:59 Intake Total 1100 Balance 1100 Intake: IV 1100 Other: Voiding Method Toilet # Voids 2 3 - Labs CBC & Chem 7: 04/28/25 03:29 04/28/25 03:29 Labs: Abnormal Lab Results - Last 24 Hours (Table) 04/28/25 04/28/25 Range/Units 03:29 03:29 Hgb 15.2 H (12.0-15.0) g/dL MCV 103.2 H (80.0-97.0) FL MCH 34.3 H (27.0-32.0) pg BUN 8.7 L (9.0-27.0) mg/dL Creatinine 0.5 L (0.6-1.5) mg/dL
--- NOTE | 2025-04-28 14:56 | P.OP ---
Date of Procedure: 04/28/25 Preoperative Diagnosis: 1. T12 AOA4 Burst fracture with retropulsion 2. T11 VCF 30% compression wedge anterior 3. Back pain s/p injury lifting heavy object 4. Debility related to fracture Postoperative Diagnosis: 1. T12 AOA4 Burst fracture with retropulsion 2. T11 VCF 30% compression wedge anterior 3. Back pain s/p injury lifting heavy object 4. Debility related to fracture Procedure(s) Performed: 1. OPEN TREATMENT FRACTURE T12 2. POSTEROLATERAL INSTRUMENTED FUSION T11-L1 3. INSTRUMENTATION, SEGMENTAL T11-L1 4. PLACEMENT OF INTRAVERTEBRAL BODY DEVICE FOR FRACTURE REDUCTION, SPINE JACKS x2 BILATERAL 5. USE OF AMARILIS NAVIGATION FOR SCREW PLACEMENT USE OF IONM ALL SCREWS TESTING > 20 mA Implants: AMARILIS EVEREST RODS AND SCREWS AMARILIS SPINE LIBERTAD SMALL X2 AUTOGRAFT Anesthesia: GETA Surgeon: Sravan Thompson Subacute Nurse #1: Hardik Clark (WAS PRESENT AND ASSISTED WITH ALL ASPECTS OF THE CASE FROM POSITION TO DRESSING PLACEMENT) Estimated Blood Loss (ml): 100 IV fluids (ml): 1,100 Urine output (ml): 250 Pathology: none sent Condition: stable Disposition: PACU Indications for Procedure: Raven Guerrero is a 59 yo female presented as transfer from [facility] after moving furniture 10 days ago with her . She felt a pop in her back and had severe pain presenting for evaluation of back pain. It was my pleasure to have seen and examined Raven Guerrero . In our visit today we have had a chance to go over subjective complaints, physical examination findings and treatments including the natural course history without intervention and various interventional options. The patient's imaging demonstrates the following findings: T12 AOA4 burst fracture with T11 compression fracture 20% Local kyphosis due to fracture at T12 with retropulsion and stenosis On a physical exam,Raven Guerrero demonstrates the following findings: Back pain, LE paresthesias Inability to perform ADLs due to pain and debility I have explained to the patient that as their condition progresses it will cause further neurological deficits and eventual paralysis. Based on the patients imaging, physical exam, and the rapid progression and disabling nature of their symptoms, at this time I recommend surgery in the form of a: OPEN TREATMENT T12 FRACTURE WITH T11-L1 STABILIZATION . I discussed the risk and benefits of this procedure at length with Raven Guerrero . The patient has agreed to consider pursuing the procedure above mentioned. Prior to surgery, they should follow up with her PCP (Cardio, ID, IM etc) for clearance. Questions were invited and answered, and the patient wishes to proceed as outlined below. Currently, I am recommending: OPEN TREATMENT T12 FRACTURE WITH T11-L1 STABILIZATION Description of Procedure: ORIF T12, T11-L1 stabilization with T12 spine libertad (BARTOLO) The patient was seen and examined in the preoperative area. All preoperative protocols were followed. Informed consent was obtained, risks and benefits of the procedure were discussed at length. Risks including bleeding infection damage to the surrounding tissue and risk of reoperation were discussed with the patient. Risk of anesthesia up to and including was discussed with the patient. These are outlined in the risk review. They were willing to accept these risks and all of the risks of surgery. The patient was given a weight- based dose of antibiotics in the form of 2 g Ancef. The patient was seen and evaluated by the anesthesia team who deemed them fit for surgery. The site was marked, the patient was willing to proceed with the procedure. The patient was transferred to the operative suite by the Department of anesthesia. They were then drifted off to sleep by the department anesthesia and GETA was performed. The patient tolerated this well. [Brennan catheter was placed by nursing staff, atraumatically]. Once confirmation of lines and ventilation the patient was transferred to a [prone Dino table very ca refully]. All bony prominences including wrists, elbows, axilla, chest, hips, and thighs, and feet were padded very well. Special attention was paid to the genitalia and these were padded accordingly. SCDs were placed on bilateral lower extremities and were connected. Arms were well padded and placed [on arm boards up and out in the 90/90 position]. Once in position, again we confirmed good ventilation capabilities and that lines were running appropriately. The patient's thoracolumbar spine was then exposed. 1010s were placed outlining the incision site. Standard alcohol was used to clean the incision site and allowed to dry. C-arm was used to needle localize and then biomark the patient and confirm level for incision which was marked with a skin marker. Operative briefing was performed with all teams and everyone in agreement to proceed. The patient was then prepped and draped in a normal sterile fashion. Timeout was then performed and all parties were in agreement with the procedure to be performed. Skin harish was made over the T12 SP and tracker attached to this via clamp. Z drape was placed and a 3D intraoperative Zhiem spin was taken of the area.. Once then was registered and confirmed to be accurate, a navigated Jamshidi and drill guide were used to target pedicles bilaterally at T11 and L1. Once targeted a wire was placed and the targeting device removed. Wires were then visualized under AP and lateral imaging confirmed good placement. Pedicles of T11 were then targeted bilaterally and wires placed for the Spine Libertad system. Drill was passed and a biopsy taken of the T11 vertebral body. The trial was then placed and confirmed under AP to be in good position on the left side, however the right side was unable to be accessed safely due to the size of the pedicle and this side was foregone for safety. Spine Libertad was then inserted and expanded showing good reduction of the fracture at T12 with height mandaen. This was then filled with cement without extravasation, myelogram or arteriogram. We then navigated screws over wires into position in the levels indicated above. The screws were tested and all tested above 20 mA. AP and lateral confirmed good placement of screws. All screws were then cemented into position through the cement cannulas. The patient remained stable throughout cementation and there was no cement extravasation angiogram a myelogram. We then sized and selected rods for the area rods were then placed subfascially through the tulips of each screw. Set screws were then placed and all screws to secure the rods bilaterally. Set screws were then final tightened and tabs broken off the screws. Final imaging confirmed good placement of rods and screws, good reduction and stabilization.. We irrigated the wounds thoroughly with normal sterile saline. The deep fascia was closed with 0 Vicryl superficial subcu closed with 2-0 Vicryl and skin closed with skin vamsi the wound edges approximated very well. wounds were then cleaned and sterilely dressed without dressings. The patient was transferred back to their hospital bed atraumatically. The patient was then awakened and extubated by the department of anesthesia having tolerated the procedure very well with no complications. They were transferred to the postoperative care unit in stable condition.
[2025-04-28] MEDS ORDERED: HYDROcodone/APAP 7.5-325MG 1 EACH TAB PO PRN (15:00)
[2025-04-28] MEDS: HYDROmorphone 0.5 MG/0.5 ML SYRINGE IVP PRN (15:35)
--- NOTE | 2025-04-28 15:38 | FL ---
EXAMINATION TYPE: FL guidance operating room, XR thoracic spine 2V DATE OF EXAM: 04/28/2025 CLINICAL HISTORY: Back pain TECHNIQUE: Fluoroscopy. Intraoperative 2 views thoracic spine. COMPARISON: CT thoracic and lumbar spine one day earlier. FINDINGS: Fluoroscopic guidance was provided during kyphoplasty and fusion procedure performed by Dr Anna Marie Jaquez. A total of 51 seconds of fluoroscopic time was utilized during the procedure . Total dose area product (DAP) in uGy*m?, mGy*cm? (or similar: 828.40. Intraoperative images show placement of kyphoplasty with posterior fusion hardware above and below th e site of kyphoplasty near the thoracolumbar junction. IMPRESSION: As Above. [facility], , 04/28/2025 3:36 PM
[2025-04-28] MEDS: ceFAZolin 2 GM in DEXTROSE 5% IN WATER 50 ML IVPB SCH (17:51)
[2025-04-28] MEDS: HYDROcodone/APAP 10-325MG 1 EACH TAB PO PRN (18:07)
--- NOTE | 2025-04-28 19:48 | P.ANPRN ---
Procedure Note - Anesthesia - Invasive Line Left Arterial Line Time Out Performed: Yes Date of Procedure: 04/28/25 Time of Procedure: 12:36 Location of Patient: PreOp Preparation: Sterile Prep, Sterile Dressing Arterial Line Location: Radial Ultrasound Used: No Purpose - Visualization and Identification of Vasculature: No Image Stored and Saved: No Narrative: Invasive line placement per sterile protocol utilized.
[2025-04-28] MEDS ORDERED: HYDROmorphone 0.5 MG/0.5 ML SYRINGE IVP PRN (20:48)
[2025-04-28] MEDS: HYDROmorphone 1 MG/ML 1 ML SYRINGE IVP PRN (21:16)
[2025-04-29 08:21] LABS: Basophils # (A) 0.06 X 10*3/uL (0.00-0.10); Basophils % (A) 0.6 %; Eosinophils # (A) 0.01 X 10*3/uL (0.04-0.35); Eosinophils % (A) 0.1 %; HCT 45.5 % (37.2-46.3); Lymphocytes # (A) 1.53 X 10*3/uL (0.90-5.00); Lymphocytes % (A) 15.2 %; MCH 33.9 pg (27.0-32.0); MCV 102.7 FL (80.0-97.0); Mean Platelet Volume 9.8 FL (9.5-12.2); Monocytes # (A) 0.49 X 10*3/uL (0.20-1.00); Monocytes % (A) 4.9 %; NRBC Per 100 WBC 0 X 10*3/uL (0.00-0.01); Neutrophils # (A) 7.91 X 10*3/uL (1.80-7.70); Neutrophils % (A) 78.7 %; Platelet Count 236 X 10*3/uL (140-440); RBC 4.43 X 10*6/uL (4.10-5.20); RDW 12.1 % (11.5-14.5); WBC 10.05 X 10*3/uL (4.50-10.00)
[2025-04-29 10:23] LABS: BUN/Creat Ratio 12.33 Ratio (12.00-20.00); Blood Urea Nitrogen 7.4 mg/dL (9.0-27.0); Calcium 9.1 mg/dL (8.7-10.3); Carbon Dioxide 26.6 mmol/L (21.6-31.8); Chloride 97 mmol/L (96-109); Glucose 116 mg/dL (70-110); Potassium 4.3 mmol/L (3.5-5.5); Sodium 134 mmol/L (135-145)
--- NOTE | 2025-04-29 11:06 | P.PN ---
Subjective Progress Note Date: 04/29/25 Principal diagnosis: 1. T12 AOA4 Burst fracture with retropulsion 2. T11 VCF 30% compression wedge anterior 3. Back pain s/p injury lifting heavy object 4. Debility related to fracture Patient was seen at bedside this morning sitting up in chair with dressing present over thoracolumbar spine. Patient says she is having pain at this time however she did feel okay when she got up with nursing from the bed to the chair. Patient says she is looking forward to working with therapy later today. Brennan/catheters currently in place. Patient denies any other issues or new sy mptoms. Objective - Vital Signs Vital signs: Vital Signs Temp 98.2 F 04/29/25 06:58 Pulse 67 04/29/25 06:58 Resp 18 04/29/25 06:58 BP 104/56 04/29/25 06:58 Pulse Ox 90 L 04/29/25 06:58 FiO2 Intake & Output 04/28/25 04/29/25 04/29/25 18:59 06:59 18:59 Intake Total 2175 Output Total 1250 900 Balance 925 -900 Weight 74.843 kg Intake: IV 2050 Intake, IV Titration 125 Amount Sodium Chloride 0.9% 1, 75 000 ml @ 75 mls/hr IV . [id number] [facility] Rx#:[id number] ceFAZolin 2 gm In 50 Dextrose 5% in Water 50 ml @ 100 mls/hr IVPB Q8HR [facility] Rx#:[id number] Output: Urine 1150 900 Estimated Blood Loss 100 Other: Voiding Method Indwelling Catheter # Voids 1 - Exam Incision is clean, dry, intact over thoracolumbar spine. Negative for any drainage. Sensation is equal, symmetric, bilateral intact throughout the extremities on exam. There is some tenderness palpation over the thoracolumbar spine exam near incisions. Nontender on rest of exam. Patient does have good range of motion of bilateral upper and lower extremities on exam. 4+/5 in all ma eric motor groups in bilateral upper and lower extremities. Negative Maddi bilaterally. Negative clonus bilaterally. - Labs CBC & Chem 7: 04/29/25 05:44 04/29/25 05:44 Labs: Abnormal Lab Results - Last 24 Hours (Table) 04/29/25 Range/Units 05:44 WBC 10.05 H (4.50-10.00) X 10*3/uL MCV 102.7 H (80.0-97.0) FL MCH 33.9 H (27.0-32.0) pg Immature Gran # 0.05 H (0.00-0.04) X 10*3/uL Neutrophils # 7.91 H (1.80-7.70) X 10*3/uL Eosinophils # 0.01 L (0.04-0.35) X 10*3/uL Assessment and Plan Assessment: 1. T12 AOA4 Burst fracture with retropulsion 2.T11 VCF 30% compression wedge anterior 3. Back pain s/p injury lifting heavy object 4. Debility related to fracture Postop day 1 status post: 1. OPEN TREATMENT FRACTURE T12 2. POSTEROLATERAL INSTRUMENTED FUSION T11-L1 Plan: 1. T12 AOA4 Burst fracture with retropulsion; T11 VCF 30% compression wedge anterior; Back pain s/p injury lifting heavy object; Debility related to fracture -surgery form yesterday, , 04/28/2025open treatment fracture at T12; posterior lateral instrumented fusion T11-L1. Patient stable at bedside this morning. Dressing clean, dry, intact. Assess dressing daily. Plan for possible dressing change tomorrow. Work with PT/OT daily. Weightbearing as tolerated with walker. Pain medication as needed. We will continue to follow patient during stay in hospital. Discharge per medicine. 2. appreciate medical management 3. Pain management -Tylenol; [place]; Dilaudid only as needed 4. DVT prophylaxis - mechanical 5. GI prophylaxis - miralax; senna 6. PT/OT -weightbearing as tolerated with walker and assistance as needed 7. Encourage incentive spirometer use Time with Patient: Less than 30
--- NOTE | 2025-04-29 15:11 | P.PN ---
Subjective Progress Note Date: 04/29/25 Hospital Course: 59-year-old female with PMH of COPD not on home oxyegn, hypertension, GERD, hi story of chronic sinus tachycardia and history of DVT in the left upper leg tobacco use disorder who presents to the ED sent by [facility] due to a compression fracture at the T12 level of her spine. She injured her back while attempting to move a recliner on 04/16/2025. She states she heard a "pop" in her mid/low back while moving the recliner and since that time has been using motrin to help control her pain. She has no associated weakness, numbness or tingling and has had no changes in bowel or urinary habits since the injury. The ER workup showed WBC 5.93, hemoglobin 17.8, hematocrit 51.4, MCV 101.4, platelet 232; sodium 134, potassium 4.1, chloride 94, bicarb 28, BUN 6, Cr 0.43, Total bilirubin .6, AST 33, ALT 22, Alk Phos 92, Calcium 10.2.Chart from [facility] reviewed as well as CT scan with discovery of T12 compression fracture and retropulsion into spinal cord with subsequent mass effect onto the thecal sac and possible conus. Patient admitted to internal medicine with orthopedic surgery on consult, Patient underwent of T12 fracture with T11 L1 fusion on 04/28/2025, tolerated procedure well, EBL 100. 6/6: Seen and examined at bedside, no acute events overnight, pain was controlled, she will try to spread her Dilaudid in preparation for discharge on oral medications only. Postop blood work showed mild leukocytosis, likely reactive, stable hemoglobin at 15.0, normal creatinine. Pertinent positives and negatives as discussed above, a complete review of systems was performed and all other systems are negative. Vitals Signs Reviewed. General: [nontoxic], [no distress], [appears at stated age] Derm: [warm], [dry] Head: [atraumatic], [normocephalic], [symmetric] Eyes: [EOMI], [no lid lag], [anicteric sclera] Mouth: [no lip lesion], [mucus membranes moist] Cardiovascular: [S1S2 reg], [no murmur] Lungs: [CTA bilateral], [no rhonchi, no rales] , [no accessory muscle use] Abdominal: [soft], [ nontender to palpation], [no guarding], [no appreciable organomegaly] Ext: [no gross muscle atrophy], [no edema], [no contractures],. Dressing clean and dry Neuro: [ CN II-XI grossly intact], [no focal neuro deficits] Psych: [Alert], [oriented], [appropriate affect] Assessment and Plan: Compression fracture of the T12 vertebra suspect open treatment 04/28 - Pain control with Tylenol 650 every 6 hours as needed, Mather 5 every 4 hours a s needed, Mather 10 every 6 hours for severe pain, Mather 7.5 every 6 hours for moderate pain, Dilaudid 0.5 every 3 hour for mild to moderate pain and 1 mg every 3 hours for severe pain. - Orthopedic surgery, appreciate recommendations - SEBASTIAN consulted Chronic sinus tachycardia - Continue home metoprolol 50 mg twice daily - Cardiac monitoring Nicotine dependence - Current 1/2 pack per day smoker, former 1 pack/day smoker for a total of 47 years - Nicotine patch available as needed; she states she does not believe she will need it Alcohol dependence - Current 6 beer/day drinker - Ativan PO per [facility] protocol - Thiamine, folic acid, multivitamin daily - Seizure precautions Hyponatremia -NS at 75 cc/h, monitor BMP daily Polycythemia likely due to dehydration and Macrocytosis, possibly secondary to poor intake, vitamin deficiency, alcohol abuse, etc... - Hgb 17.8, Hct 51.4 and MCV 101. 4 on admission, hemoglobin down trended on IV hydration to 14.9 - TSH, Vitamin B12 and folate level ordered, TSH normal 1.6, folate 10.5, B12 259 - Continue to monitor CBC Constipation -Continue MiraLAX. daily as needed, added senna daily Chronic conditions: Hypertension Hyperlipidemia COPD - Utilizes home inhalers on an as needed basis, stating she does not use them very often, 1-2 week - Inhalers available as needed, Spiriva 2 puffs daily - Continue home medications: Lisinopril 5 mg p.o. daily, atorvastatin 10 mg p.o. daily, metoprolol 50 mg p.o. twice daily DVT prophylaxis: SCDs CODE STATUS: Full code Discussed with: Patient Anticipated discharge place: D Objective - Vital Signs Vital signs: Vital Signs Temp 98.4 F 04/29/25 14:09 Pulse 57 L 04/29/25 14:09 Resp 18 04/29/25 14:09 BP 109/60 04/29/25 14:09 Pulse Ox 90 L 04/29/25 14:09 FiO2 Intake & Output 04/28/25 04/29/25 04/29/25 18:59 06:59 18:59 Intake Total 2175 380 Output Total 1250 900 Balance 925 -900 380 Weight 74.843 kg Intake: IV 0 Intake, IV Titration 125 Amount Sodium Chloride 0.9% 1, 75 000 ml @ 75 mls/hr IV . [id number] [facility] Rx#:[id number] ceFAZolin 2 gm In 50 Dextrose 5% in Water 50 ml @ 100 mls/hr IVPB Q8HR [facility] Rx#:[id number] Oral 380 Output: Urine 1150 900 Estimated Blood Loss 100 Other: Voiding Method Indwelling Catheter Indwelling Catheter # Voids 1 - Labs CBC & Chem 7: 04/29/25 05:44 04/29/25 05:44 Labs: Abnormal Lab Results - Last 24 Hours (Table) 04/29/25 04/29/25 Range/Units 05:44 05:44 WBC 10.05 H (4.50-10.00) X 10*3/uL MCV 102.7 H (80.0-97.0) FL MCH 33.9 H (27.0-32.0) pg Immature Gran # 0.05 H (0.00-0.04) X 10*3/uL Neutrophils # 7.91 H (1.80-7.70) X 10*3/uL Eosinophils # 0.01 L (0.04-0.35) X 10*3/uL Sodium 134 L (135-145) mmol/L BUN 7.4 L (9.0-27.0) mg/dL Glucose 116 H (70-110) mg/dL
[2025-04-30] MEDS: diphenhydrAMINE 50 MG/ML 1 ML VIAL IVP STA (05:34)
--- NOTE | 2025-04-30 09:01 | P.PN ---
Subjective Progress Note Date: 04/30/25 Hospital Course: 59-year-old female with PMH of COPD not on home oxyegn, hypertension, GERD, hi story of chronic sinus tachycardia and history of DVT in the left upper leg tobacco use disorder who presents to the ED sent by [facility] due to a compression fracture at the T12 level of her spine. She injured her back while attempting to move a recliner on 04/16/2025. She states she heard a "pop" in her mid/low back while moving the recliner and since that time has been using motrin to help control her pain. She has no associated weakness, numbness or tingling and has had no changes in bowel or urinary habits since the injury. The ER workup showed WBC 5.93, hemoglobin 17.8, hematocrit 51.4, MCV 101.4, platelet 232; sodium 134, potassium 4.1, chloride 94, bicarb 28, BUN 6, Cr 0.43, Total bilirubin .6, AST 33, ALT 22, Alk Phos 92, Calcium 10.2.Chart from [facility] reviewed as well as CT scan with discovery of T12 compression fracture and retropulsion into spinal cord with subsequent mass effect onto the thecal sac and possible conus. Patient admitted to internal medicine with orthopedic surgery on consult, Patient underwent of T12 fracture with T11 L1 fusion on 04/28/2025, tolerated procedure well, EBL 100. 04/29: Seen and examined at bedside, no acute events overnight, pain was controlled, she will try to spread her Dilaudid in preparation for discharge on oral medications only. Postop blood work showed mild leukocytosis, likely reactive, stable hemoglobin at 15.0, normal creatinine. 04/30: No events overnight, seen and examined at bedside, she was sitting upright in the bed, ambulated with a walker, PT OT evaluation pending, pain is well-controlled. Blood work pending, vital stable, from IM standpoint patient stable for discharge Pertinent positives and negatives as discussed above, a complete review of systems was performed and all other systems are negative. Vitals Signs Reviewed. General: [nontoxic], [no distress], [appears at stated age] Derm: [warm], [dry] Head: [atraumatic], [normocephalic], [symmetric] Eyes: [EOMI], [no lid lag], [anicteric sclera] Mouth: [no lip lesion], [mucus membranes moist] Cardiovascular: [S1S2 reg], [no murmur] Lungs: [CTA bilateral], [no rhonchi, no rales] , [no accessory muscle use] Abdominal: [soft], [ nontender to palpation], [no guarding], [no appreciable organomegaly] Ext: [no gross muscle atrophy], [no edema], [no contractures],. Dressing clean and dry Neuro: [ CN II-XI grossly intact], [no focal neuro deficits] Psych: [Alert], [oriented], [appropriate affect] Assessment and Plan: Compression fracture of the T12 vertebra suspect open treatment /5 - Pain control with Tylenol 650 every 6 hours as needed, [place] 5 every 4 hours as needed, [place] 10 every 6 hours for severe pain, [place] 7.5 every 6 hours for moderate pain, Dilaudid 0.5 every 3 hour for mild to moderate pain and 1 mg every 3 hours for severe pain. - Orthopedic surgery, appreciate recommendations - PT OT consulted Chronic sinus tachycardia - Continue home metoprolol 50 mg twice daily - Cardiac monitoring Nicotine dependence - Current 1/2 pack per day smoker, former 1 pack/day smoker for a total of 47 years - Nicotine patch available as needed; she states she does not believe she will need it Alcohol dependence - Current 6 beer/day drinker - Ativan PO per [facility] protocol - Thiamine, folic acid, multivitamin daily - Seizure precautions Hyponatremia -NS at 75 cc/h, monitor BMP daily Polycythemia likely due to dehydration and Macrocytosis, possibly secondary to poor intake, vitamin deficiency, alcohol abuse, etc... - Hgb 17.8, Hct 51.4 and MCV 101. 4 on admission, hemoglobin down trended on IV hydration to 14.9 - TSH, Vitamin B12 and folate level ordered, TSH normal 1.6, folate 10.5, B12 259 - Continue to monitor CBC Constipation -Continue MiraLAX. daily as needed, added senna daily Chronic conditions: Hypertension Hyperlipidemia COPD - Utilizes home inhalers on an as needed basis, stating she does not use them very often, 1-2 week - Inhalers available as needed, Spiriva 2 puffs daily - Continue home medications: Lisinopril 5 mg p.o. daily, atorvastatin 10 mg p.o. daily, metoprolol 50 mg p.o. twice daily DVT prophylaxis: SCDs CODE STATUS: Full code Discussed with: Patient Anticipated discharge place: TBD Objective - Vital Signs Vital signs: Vital Signs Temp 98.4 F 04/30/25 08:00 Pulse 86 04/30/25 08:00 Resp 20 04/30/25 08:00 BP 147/74 04/30/25 08:00 Pulse Ox 93 L 04/30/25 08:40 FiO2 Intake & Output 04/29/25 04/30/25 04/30/25 18:59 06:59 18:59 Intake Total 830 1500 Output Total 400 Balance 430 1500 Intake: Oral 830 1500 Output: Urine 400 Uretheral (Brennan) 400 Other: Voiding Method Indwelling Catheter Toilet Toilet # Voids 4 - Labs CBC & Chem 7: 04/29/25 05:44 04/29/25 05:44 Labs: Abnormal Lab Results - Last 24 Hours (Table) 04/29/25 Range/Units 05:44 Sodium 134 L (135-145) mmol/L BUN 7.4 L (9.0-27.0) mg/dL Glucose 116 H (70-110) mg/dL
--- NOTE | 2025-04-30 11:39 | P.PN ---
Subjective Progress Note Date: 04/30/25 Principal diagnosis: T11 and T12 VCF Patient evaluated at bedside today, she is sleeping on initial exam, she is easily awoken both. Patient is doing better. She has been ambulating with the use of the walker and urinating with no issues. She still is requiring the IV Dilaudid she states which she is trying to cut back on. She denies headaches, lightheadedness, chest pain or shortness of breath Objective - Vital Signs Vital signs: Vital Signs Temp 98.4 F 04/30/25 08:00 Pulse 86 04/30/25 08:00 Resp 20 04/30/25 08:00 BP 147/74 04/30/25 08:00 Pulse Ox 93 L 04/30/25 08:40 FiO2 Intake & Output 04/29/25 04/30/25 04/30/25 18:59 06:59 18:59 Intake Total 830 1500 Output Total 400 Balance 430 1500 Intake: Oral 830 1500 Output: Urine 400 Uretheral (Brennan) 400 Other: Voiding Method Indwelling Catheter Toilet Toilet # Voids 4 - Exam Gen: AOx3, NAD VSS stable at this time Integument: Postop bandages in good position and condition Palpation: Tenderness with palpation to the midline and paraspinal region of the T12 area ROM: Full range of motion in all major muscle groups of the bilateral upper and lower extremities, no focal deficits. Sensory Exam: Senory exam to light touch is intact C5-T1 Senosry exam to light touch is intact L2-S1 Motor: 5/5 strength appreciated the bilateral upper extremities with shoulder elevation, shoulder abduction, elbow extension, elbow flexion, wrist extension, wrist flexion, graphic design intern 5/5 strength appreciated in the bilateral lower extremities with hip flexion, knee extension, knee flexion, plantarflexion, dorsiflexion, EHL, FHL Reflexes: 2/4 in all UE and LE Negative Zulema's bilaterally Negative clonus bilaterally Special Test: Logroll maneuver reproduces no pain bilaterally Straight leg raise bilaterally negative - Labs CBC & Chem 7: 04/29/25 05:44 04/29/25 05:44 Assessment and Plan Assessment: Postop day #2 status post posterior lateral instrumented fusion T11-S1, and open fracture treatment T12 T12 AO type IV burst fracture T11 VCF Nicotine dependence Alcohol dependence Other medical comorbidities Plan: Plan: Pain control, utilize Tylenol, low-dose muscle relaxer, Toradol versus oral pain medication. Explained to patient she needs to cut down on Dilaudid. Discussed with nursing dressing change today, okay to shower directly over the incision DVT prophylaxis per primary medical service will hold medications at this time until after surgery PT/OT evaluation Other medical specialty recommendations appreciated Discharge planning: Planning for discharge home on 05/01/2025 Time with Patient: Less than 30
[2025-04-30] MEDS: polyethylene glycoL 3350 17 GM POWD.PACK PO PRN (19:56)
[2025-05-01 09:32] VITALS: BP 127/73; PULSE 76; RESP 18; TEMP 98.5
--- NOTE | 2025-05-01 11:35 | P.PN ---
Subjective Progress Note Date: 05/01/25 Principal diagnosis: T11 and T12 VCF Patient evaluated at bedside today, she is resting hospital in her hospital bed. Pain is controlled currently with medications. She is eager to be discharged home today, she feels she is moving a lot better. She denies headaches, lightheadedness, chest pain or shortness of breath Objective - Vital Signs Vital signs: Vital Signs Temp 98.5 F 05/01/25 07:42 Pulse 76 05/01/25 07:42 Resp 18 05/01/25 07:42 BP 127/73 05/01/25 07:42 Pulse Ox 92 L 05/01/25 07:42 FiO2 Intake & Output 04/30/25 05/01/25 05/01/25 18:59 06:59 18:59 Intake Total 900 1000 Balance 900 1000 Intake: Oral 900 1000 Other: Voiding Method Toilet Toilet # Voids 3 - Exam Gen: AOx3, NAD VSS stable at this time Integument: Postop bandages in good position and condition Palpation: Tenderness with palpation to the midline and paraspinal region of the T12 area ROM: Full range of motion in all major muscle groups of the bilateral upper and lower extremities, no focal deficits. Sensory Exam: Senory exam to light touch is intact C5-T1 Senosry exam to light touch is intact L2-S1 Motor: 5/5 strength appreciated the bilateral upper extremities with shoulder elevation, shoulder abduction, elbow extension, elbow flexion, wrist extension, wrist flexion, building inspector 5/5 strength appreciated in the bilateral lower extremities with hip flexion, knee extension, knee flexion, plantarflexion, dorsiflexion, EHL, FHL Reflexes: 2/4 in all UE and LE Negative Zulema's bilaterally Negative clonus bilaterally Special Test: Logroll maneuver reproduces no pain bilaterally Straight leg raise bilaterally negative - Labs CBC & Chem 7: 04/29/25 05:44 04/29/25 05:44 Assessment and Plan Assessment: Postop day #3 status post posterior lateral instrumented fusion T11-S1, and open fracture treatment T12 T12 AO type IV burst fracture T11 VCF Nicotine dependence Alcohol dependence Other medical comorbidities Plan: Plan: Pain control, will discharge home on oral medication wound care instructions discussed today at bedside DVT prophylaxis per primary medical service will hold medications at this time until after surgery PT/OT evaluation Other medical specialty recommendations appreciated Discharge planning: stable for discharge home today Time with Patient: Less than 30
--- NOTE | 2025-05-01 11:40 | P.DS ---
Providers Date of admission: 04/26/25 19:20 Expected date of discharge: 05/01/25 Attending physician: Maryanne Jaquez MD Consults: 04/26/25 18:01 Consult Physician Stat Consulting Provider: Sravan Thompson Consult Reason/Comments: T12 compression fracture with retropulsion and spinal cord mass effect Do you want consulting provider notified?: Already Contacted Primary care physician: Stated None Hospital Course: Date of admission: 04/26/2025 Date of discharge: 05/01/2025 Admission diagnosis: T12 ao burst fracture, T11 vertebral body compression fracture Discharge diagnosis: Status post T11-L1 posterior lateral stabilization and fusion, open treatment T12 fracture Attending physician: Dr. Thompson Surgical procedures: T11-S1 L1 posterior lateral stabilization and fusion with open T12 fracture treatment Brief history: Patient is a 59-year-old who had presented to [facility] on 04/26/2025 due to severe back pain that was initiated after an injury about a week and a half ago. Imaging test demonstrated a AAO type IV burst fracture of T12 and a vertebral body compression fracture at T11. Conservative measures were initially tried, patient did not do very well with this so she was scheduled for surgical intervention for 04/28/2025 Hospital course: Details of patient's surgery can be found in operative report. Patient tolerated the procedure well and was subsequently transported to orthopedic floor. Patient's orthopeidc and medical care was provided daily. Patient had daily laboratory tests performed for evaluation of overall blood counts. Patient had daily physical therapy to include strengthening range of motion as well as education with walker ambulation. Patient was treated with NATAN hose and compression stockings for their postoperative DVT prophylaxis during their inpatient stay. Patient was noted to have a relatively uneventful postoperative course. Patient reported satisfactory pain control with oral pain medications by postoperative day 1. Patient showed satisfactory progress with physical therapy. Patient moved steadily through the program and had no difficulty meeting the goals by postoperative day 3. Given patient's otherwise satisfactory course and having met physical therapy goals, plan is to discharge patient [home] on postoperative day 3. Discharge condition/disposition: Patient will be discharged [home] in stable condition. Discharge medications: Instructions are given on resumption of patient's normal daily medications per primary care recommendation, in addition patient will be prescribed Perry 5 mg / 325 mg, Duricef 500 mg, Flexeril 5 mg, senna S. Spine Discharge and Recovery Instructions Medications: See medication list All medication refills should be obtained through your primary care doctor or your clinic spine surgeon. Please discuss prescription refills at your follow up appointment. Do not call the hospital for medication refills. Dressing: Leave your dressing in place for a total of 5 days post operatively. Then you may remove your dressing and leave open to air. Keep the area clean and if not able to keep area clean, then cover with sterile gauze and tape. Showering: You may shower 3 days after your procedure allowing soap and water to run over incision. Do not scrub. Do not soak. Blot dry. Follow up: Please confirm a follow up appointment with your surgeon 3 weeks post operatively. Please make an appointment to follow up with your PCP in 1-2 weeks after surgery for evaluation '3 phase, 3-week plan' POST OP WEEKS 1-3 1. Lifting/carrying/pushing/pulling limited to less than 5 pounds. 2. Do not sit for longer than 15 minutes at one time. Get up and walk chris und. Prolonged sitting is NOT advised. If you lay down, see if you can tolerate laying down on you front (belly side) 3. Walk for periods of 15 minutes = 1 mile but no longer; do it multiple times times each day. 4. Ice your low back after activity. POST OP WEEKS 3-6 1. Lifting limited to less than 20 pounds. 2. Do not sit for longer than 30 minutes at a time. Frequently change positions. Use a sit-to stand workstation or take frequent breaks from sitting if you have returned to work. 3. Walk for 30 minutes each day. If possible, do these three or more times a day POST OP WEEKS 6+ At your 6-week appointment we will give you a physical therapy referral to focus on a core stabilization and strengthening program. You should also work on leg & buttock strengthening, hamstring & quadriceps stretching, and continue a low impact aerobic activity program such as swimming, walking, or riding a stationary bicycle. During the initial 6 weeks after your surgery, you are at the highest risk of re-injuring your spine. You should generally avoid BLT's (bending, lifting and twisting combination motions) and follow the above guidelines to reduce the chance of reinjury. You can anticipate post op appointments in our office at approximately 3 weeks and 6 weeks after your surgery. INCISION CARE: If your incision is not draining you do NOT need to cover it with a dressing. Keep your incision clean, dry and intact. In most cases, we apply skin glue, vamsi or sutures to the incision at the ti me of surgery. This will be like a crust or have the appearance of a scab and will fall off in time on its own. The stitches or vamsi need to be removed at 3 weeks post op appointment. You may begin to shower 3 days after surgery (this allows the glue to infante well). However, please avoid scrubbing the incision site or peeling off any of the skin glue. This will ensure optimal healing of your incision. Also, during this time avoid soaking the incision area in water - this includes swimming pools, hot tubs or baths. No ointments, lotions or oils on the incision until your surgeon allows. Leave vamsi, sutures or glue in place. Neurological dysfunction that comes on suddenly can also be a sign of a stroke. Below some common symptoms of a stroke are listed: B - balance difficulty such as sudden onset walking or leaning to one side - NEW E - eye problem such as sudden double vision or trouble seeing on one side - NEW F - Facial weakness or numbness on one side - NEW A - Arm or leg weakness or numbness on one side - NEW S - Slurred speech or difficulty with word finding - NEW T - Time is BRAIN! Call 911 as soon as you recognize these symptoms Diet: Consume a regular diet rich in vegetables and lean protein such as chicken or fish. You should consume in a ratio of approximately 20% fats|40% carbohydrates|40%protein. Vegetables, sweet potatoes, brown rice or quinoa are examples of good carbohydrates. Chips, white bread, cookies and sweets/sugar are examples of bad carbohydrates. Limit your bad carbs, go wild with good carbs. "Life's Simple 7" Guidelines as per [place] Heart Association These will help you reclaim your life after surgery and cutting machine tender helper in your recovery, keeping in mind your restrictions. (1) Get Active. Physical activity can help people lose weight, control high blood pressure and cholesterol, feel emotionally better, and sleep better. (2) Control Cholesterol. Avoid a diet high in saturated fat, trans fat, & cholesterol. Limit whole milk & cream, ice cream, butter, egg yolks, processed meats (like sausage and hot dogs), and fatty meats. Choose healthy foods that are low in saturated fat, trans fat and cholesterol which include: Fruits and vegetables, fiber rich grain products (like whole grain pasta and brown rice), lean meat such as chicken, fish, nuts, seeds, and legumes. (3) Eat Better. Eat small portions. Shop at the grocery with a list and do not stray from it. Tips for a healthy diet include: Limit sodium intake to less than 1500mg daily, avoid prepackaged, processed, and fast foods, choose a diet rich in fruits, vegetables, and whole grain, high fiber foods, and limit saturated & cholesterol in your diet. (4) Manage Blood Pressure. If you have high blood pressure, you should have a cuff at home so that you can check your blood pressure regularly. Be sure you have a good cuff. An arm one is generally better than a wrist one. Bring the cuff to a doctor's appointment to validate that the measurements that your cuff are taking are accurate. Take your blood pressure twice daily when you are sitting down and relaxing. Record the numbers in a log and bring this log with you to your doctors' appointments. (5) Lose Weight if your BMI is above 25. A healthy BMI is between 19-25. To calculate Your BMI, you may use a Standard BMI Calculator on the NIH BMI website: <www.nhlbi.nih.gov/guidelines/obesity/BMI/bmicalc.htm>. Weigh oneself daily. If you are overweight, set a goal to lose weight. A pound a week loss if needed is a good target. (6) Reduce Blood Sugar. Limit foods and liquids with "added sugars." (Added sugars include sucrose, fructose, glucose, maltose, dextrose, high fructose corn syrup, corn syrup, concentrated fruit juice and honey). (7) Stop Smoking. If you smoke, quitting smoking is one of the best things that you can do for your health. Smoking increases your risk of heart attack, s troke, and peripheral vascular disease, which is a build-up of plaque in your arteries. Please discard all the cigarettes and lighters in your house. Have a plan for what you will do when you have the urge to smoke. Direct and second- hand smoke shortens your life as well as the lives of your family, friends and others around you. For your health and the health of those around you, please consider quitting! Proper Bending Body Mechanics: Maintain a wide stance with one foot slightly in front of the other. Keep your back straight. Bend utilizing the strength in your hips and knees. Do not bend at the waist. Maintain the lifted object at your waist-level close to your body. Avoid lifting weight that causes immediately pain or pain anywhere in the body afterwards. Smoking/Nicotine If there was ever one thing that you could do to increase your overall health, decrease your risk of cardiovascular problems by about 39% the second you make the choice, it is to STOP SMOKING. Your body's most instant gratification is the second you stop smoking. We have all heard the studies, read the articles but it is true, smoking is extremely bad for your overall health, and moreover it is detrimental to your bone health. Nicotine, IN ANY FORM, kills bone cells, prevents your body from healing fractures, and significantly prolongs healing after surgery. In spine surgery specifically, it increases your risk of not healing your bones to create a fusion and increases your risk of having a revision surgery due to this up to 60%. I know it is hard. I know it feels impossible. But there are ways. Take control of your life. We are here to help you through it. And when you are ready, ask us and we can direct you to help if you desire. Use the START Plan to Quit Smoking (please visit the Helpguide.org website listed below for more information): S = Set a quit date. Choose a date within the next 2 weeks, so you have enough time to prepare without losing your motivation to quit. If you mainly smoke at work, quit on the weekend, so you have a few days to adjust to the change. T = Tell family, friends, and co-workers that you plan to quit. Let your friends and family in on your plan to quit smoking and tell them you need their support and encouragement to stop. Look for a quit calos who wants to stop smoking as well. You can help each other get through the rough times. A = Anticipate and plan for the challenges you'll face while quitting. Most people who begin smoking again do so within the first 3 months. You can help yourself make it through by preparing ahead for common challenges, such as nicotine withdrawal and cigarette cravings. R = Remove cigarettes and other tobacco products from your home, car, and work. Throw away all your cigarettes (no emergency pack!), lighters, ashtrays, and matches. Wash your clothes and freshen up anything that smells like smoke. Shampoo your car, clean your drapes and carpet, and steam your furniture. T = Talk to your doctor about getting help to quit. Your doctor can prescribe medication to help with withdrawal and suggest other alternatives. If you can't see a doctor, you can get many products over the counter at your local pharmacy or grocery store, including the nicotine patch, nicotine lozenges, and nicotine gum. Resources for Quitting Smoking: <https://www.[place].gov/documents/[facility]/Quit_Tobacco_Resources_for_patients_313 480_7.pdf> Supplementation: Take recommended dosages of Vitamin D and Calcium to help fortify your bones and help them to heal. See your health maintenance packet for dosages and recommended levels. DVT/VTE prophylaxis: You will be given compression stockings from the hospital. Wear these daily for the first two weeks after surgery. You may take them off at night. You may be prescribed a medication to help thin your blood. Take this as directed. If you are not prescribed this medication, early and frequent ambulation has been shown to be the best prophylaxis to deep vein thrombosis and sequelae related to this event. Procedures: T11-L1 posterior lateral stabilization and fusion, open fracture treatment of T12 Patient Condition at Discharge: Fair Plan - Discharge Summary Discharge Rx Participant: Yes New Discharge Prescriptions: New Thiamine [Vitamin B-1] 100 mg PO DAILY #30 tab cefaDROXiL [Duricef] 500 mg PO Q12HR 5 Days #10 cap Cyclobenzaprine [Flexeril] 5 mg PO BID PRN #30 tablet PRN Reason: Muscle Spasm Sennosides/Docusate Sodium [Senna-S 8.6-50 mg Tablet] 2 each PO DAILY PRN #30 tablet PRN Reason: Constipation Folic Acid 1 mg PO DAILY #30 tab lisinopriL [Zestril] 5 mg PO DAILY #30 tab HYDROcodone/APAP 5-325MG [Perry 5-325] 1 tab PO Q6HR PRN #28 tab PRN Reason: Pain Continue Rosuvastatin Calcium 5 mg PO DAILY Albuterol Inhaler [Ventolin Hfa Inhaler] 2 puff INHALATION RT-Q4H PRN PRN Reason: Shortness Of Breath Fluticasone/Umeclidin/Vilanter [Trelegy Ellipta 200-62.5-25] 1 puff INHALATION RT-DAILY Metoprolol Tartrate [Lopressor] 50 mg PO BID-W/MEALS Aspirin EC [Ecotrin Low Dose] 81 mg PO DAILY Levalbuterol Nebulized [Xopenex Nebulized] 1.25 mg INHALATION RT-BID Discharge Medication List Albuterol Inhaler [Ventolin Hfa Inhaler] 2 puff INHALATION RT-Q4H PRN 04/26/25 [History] Aspirin EC [Ecotrin Low Dose] 81 mg PO DAILY 04/26/25 [History] Fluticasone/Umeclidin/Vilanter [Trelegy Ellipta 200-62.5-25] 1 puff INHALATION RT-DAILY 04/26/25 [History] Levalbuterol Nebulized [Xopenex Nebulized] 1.25 mg INHALATION RT-BID 04/26/25 [History] Metoprolol Tartrate [Lopressor] 50 mg PO BID-W/MEALS 04/26/25 [History] Rosuvastatin Calcium 5 mg PO DAILY 04/26/25 [History] Folic Acid 1 mg PO DAILY #30 tab 04/30/25 [Rx] Thiamine [Vitamin B-1] 100 mg PO DAILY #30 tab 04/30/25 [Rx] lisinopriL [Zestril] 5 mg PO DAILY #30 tab 04/30/25 [Rx] Cyclobenzaprine [Flexeril] 5 mg PO BID PRN #30 tablet 05/01/25 [Rx] HYDROcodone/APAP 5-325MG [Perry 5-325] 1 tab PO Q6HR PRN #28 tab 05/01/25 [Rx] Sennosides/Docusate Sodium [Senna-S 8.6-50 mg Tablet] 2 each PO DAILY PRN #30 tablet 05/01/25 [Rx] cefaDROXiL [Duricef] 500 mg PO Q12HR 5 Days #10 cap 05/01/25 [Rx] Follow up Appointment(s)/Referral(s): [facility] [NON-STAFF] - 1 Week [facility] [NON-STAFF] - 1 Week None,Stated [Primary Care Provider] - 1-2 days Activity/Diet/Wound Care/Special Instructions: Please, follow up with your PCP, orthopedic surgeon Spine Discharge and Recovery Instructions Medications: See medication list All medication refills should be obtained through your primary care doctor or your clinic spine surgeon. Please discuss prescription refills at your follow up appointment. Do not call the hospital for medication refills. Dressing: Leave your dressing in place for a total of 5 days post operatively. Then you may remove your dressing and leave open to air. Keep the area clean and if not able to keep area clean, then cover with sterile gauze and tape. Showering: You may shower 3 days after your procedure allowing soap and water to run over incision. Do not scrub. Do not soak. Blot dry. Follow up: Please confirm a follow up appointment with your surgeon 3 weeks post operatively. Please make an appointment to follow up with your PCP in 1-2 weeks after surgery for evaluation '3 phase, 3-week plan' POST OP WEEKS 1-3 1. Lifting/carrying/pushing/pulling limited to less than 5 pounds. 2. Do not sit for longer than 15 minutes at one time. Get up and walk around. Prolonged sitting is NOT advised. If you lay down, see if you can tolerate laying down on you front (belly side) 3. Walk for periods of 15 minutes = 1 mile but no longer; do it multiple times times each day. 4. Ice your low back after activity. POST OP WEEKS 3-6 1. Lifting limited to less than 20 pounds. 2. Do not sit for longer than 30 minutes at a time. Frequently change positions. Use a sit-to stand workstation or take frequent breaks from sitting if you have returned to work. 3. Walk for 30 minutes each day. If possible, do these three or more times a day POST OP WEEKS 6+ At your 6-week appointment we will give you a physical therapy referral to focus on a core stabilization and strengthening program. You should also work on leg & buttock strengthening, hamstring & quadriceps stretching, and continue a low impact aerobic activity program such as swimming, walking, or riding a stationary bicycle. During the initial 6 weeks after your surgery, you are at the highest risk of re-injuring your spine. You should generally avoid BLT's (bending, lifting and twisting combination motions) and follow the above guidelines to reduce the chance of reinjury. You can anticipate post op appointments in our office at approximately 3 weeks and 6 weeks after your surgery. INCISION CARE: If your incision is not draining you do NOT need to cover it with a dressing. Keep your incision clean, dry and intact. In most cases, we apply skin glue, vamsi or sutures to the incision at the time of surgery. This will be like a crust or have the appearance of a scab and will fall off in time on its own. The stitches or vamsi need to be removed at 3 weeks post op appointment. You may begin to shower 3 days after surgery (this allows the glue to infante well). However, please avoid scrubbing the incision site or peeling off any of the skin glue. This will ensure optimal healing of your incision. Also, during this time avoid soaking the incision area in water - this includes swimming pools, hot tubs or baths. No ointments, lotions or oils on the incision until your surgeon allows. Leave vamsi, sutures or glue in place. Neurological dysfunction that comes on suddenly can also be a sign of a stroke. Below some common symptoms of a stroke are listed: B - balance difficulty such as sudden onset walking or leaning to one side - NEW E - eye problem such as sudden double vision or trouble seeing on one side - NEW F - Facial weakness or numbness on one side - NEW A - Arm or leg weakness or numbness on one side - NEW S - Slurred speech or difficulty with word finding - NEW T - Time is BRAIN! Call 911 as soon as you recognize these symptoms Diet: Consume a regular diet rich in vegetables and lean protein such as chicken or fish. You should consume in a ratio of approximately 20% fats|40% carbohydrates|40%protein. Vegetables, sweet potatoes, brown rice or quinoa are examples of good carbohydrates. Chips, white bread, cookies and sweets/sugar are examples of bad carbohydrates. Limit your bad carbs, go wild with good carbs. "Life's Simple 7" Guidelines as per [place] Heart Association These will help you reclaim your life after surgery and cutting machine tender helper in your recovery, keeping in mind your restrictions. (1) Get Active. Physical activity can help people lose weight, control high blood pressure and cholesterol, feel emotionally better, and sleep better. (2) Control Cholesterol. Avoid a diet high in saturated fat, trans fat, & cholesterol. Limit whole milk & cream, ice cream, butter, egg yolks, processed meats (like sausage and hot dogs), and fatty meats. Choose healthy foods that are low in saturated fat, trans fat and cholesterol which include: Fruits and vegetables, fiber rich grain products (like whole grain pasta and brown rice), lean meat such as chicken, fish, nuts, seeds, and legumes. (3) Eat Better. Eat small portions. Shop at the grocery with a list and do not stray from it. Tips for a healthy diet include: Limit sodium intake to less than 1500mg daily, avoid prepackaged, processed, and fast foods, choose a diet rich in fruits, vegetables, and whole grain, high fiber foods, and limit saturated & cholesterol in your diet. (4) Manage Blood Pressure. If you have high blood pressure, you should have a cuff at home so that you can check your blood pressure regularly. Be sure you have a good cuff. An arm one is generally better than a wrist one. Bring the cuff to a doctor's appointment to validate that the measurements that your cuff are taking are accurate. Take your blood pressure twice daily when you are sitting down and relaxing. Record the numbers in a log and bring this log with you to your doctors' appointments. (5) Lose Weight if your BMI is above 25. A healthy BMI is between 19-25. To calculate Your BMI, you may use a Standard BMI Calculator on the NIH BMI website: <www.nhlbi.nih.gov/guidelines/obesity/BMI/bmicalc.htm>. Weigh oneself daily. If you are overweight, set a goal to lose weight. A pound a week loss if needed is a good target. (6) Reduce Blood Sugar. Limit foods and liquids with "added sugars." (Added s ugars include sucrose, fructose, glucose, maltose, dextrose, high fructose corn syrup, corn syrup, concentrated fruit juice and honey). (7) Stop Smoking. If you smoke, quitting smoking is one of the best things that you can do for your health. Smoking increases your risk of heart attack, stroke, and peripheral vascular disease, which is a build-up of plaque in your arteries. Please discard all the cigarettes and lighters in your house. Have a plan for what you will do when you have the urge to smoke. Direct and second- hand smoke shortens your life as well as the lives of your family, friends and others around you. For your health and the health of those around you, please consider quitting! Proper Bending Body Mechanics: Maintain a wide stance with one foot slightly in front of the other. Keep your back straight. Bend utilizing the strength in your hips and knees. Do not bend at the waist. Maintain the lifted object at your waist-level close to your body. Avoid lifting weight that causes immediately pain or pain anywhere in the body afterwards. Smoking/Nicotine If there was ever one thing that you could do to increase your overall health, decrease your risk of cardiovascular problems by about 39% the second you make the choice, it is to STOP SMOKING. Your body's most instant gratification is the second you stop smoking. We have all heard the studies, read the articles but it is true, smoking is extremely bad for your overall health, and moreover it is detrimental to your bone health. Nicotine, IN ANY FORM, kills bone cells, prevents your body from healing fractures, and significantly prolongs healing after surgery. In spine surgery specifically, it increases your risk of not healing your bones to create a fusion and increases your risk of having a revision surgery due to this up to 60%. I know it is hard. I know it feels impossible. But there are ways. Take control of your life. We are here to help you through it. And when you are ready, ask us and we can direct you to help if you desire. Use the START Plan to Quit Smoking (please visit the Helpguide.org website listed below for more information): S = Set a quit date. Choose a date within the next 2 weeks, so you have enough time to prepare without losing your motivation to quit. If you mainly smoke at work, quit on the weekend, so you have a few days to adjust to the change. T = Tell family, friends, and co-workers that you plan to quit. Let your friends and family in on your plan to quit smoking and tell them you need their support and encouragement to stop. Look for a quit calos who wants to stop smoking as well. You can help each other get through the rough times. A = Anticipate and plan for the challenges you'll face while quitting. Most people who begin smoking again do so within the first 3 months. You can help yourself make it through by preparing ahead for common challenges, such as nicotine withdrawal and cigarette cravings. R = Remove cigarettes and other tobacco products from your home, car, and work. Throw away all your cigarettes (no emergency pack!), lighters, ashtrays, and matches. Wash your clothes and freshen up anything that smells like smoke. Shampoo your car, clean your drapes and carpet, and steam your furniture. T = Talk to your doctor about getting help to quit. Your doctor can prescribe medication to help with withdrawal and suggest other alternatives. If you can't see a doctor, you can get many products over the counter at your local pharmacy or grocery store, including the nicotine patch, nicotine lozenges, and nicotine gum. Resources for Quitting Smoking: <https://www.[place].gov/documents/[facility]/Quit_Tobacco _Resources_for_patients_313480_7.pdf> Supplementation: Take recommended dosages of Vitamin D and Calcium to help fortify your bones and help them to heal. See your health maintenance packet for dosages and recommended levels. DVT/VTE prophylaxis: You will be given compression stockings from the hospital. Wear these daily for the first two weeks after surgery. You may take them off at night. You may be prescribed a medication to help thin your blood. Take this as directed. If you are not prescribed this medication, early and frequent ambulation has been shown to be the best prophylaxis to deep vein thrombosis and sequelae related to this event. Discharge/Stand Alone Forms: AA Meetings [facility], Inp Substance Abuse Facilities, Area PCPs Discharge Disposition: HOME SELF-CARE
--- NOTE | 2025-05-01 11:57 | P.PN ---
Subjective Progress Note Date: 05/01/25 Hospital Course: 59-year-old female with PMH of COPD not on home oxyegn, hypertension, GERD, hi story of chronic sinus tachycardia and history of DVT in the left upper leg tobacco use disorder who presents to the ED sent by [facility] due to a compression fracture at the T12 level of her spine. She injured her back while attempting to move a recliner on 04/16/2025. She states she heard a "pop" in her mid/low back while moving the recliner and since that time has been using motrin to help control her pain. She has no associated weakness, numbness or tingling and has had no changes in bowel or urinary habits since the injury. The ER workup showed WBC 5.93, hemoglobin 17.8, hematocrit 51.4, MCV 101.4, platelet 232; sodium 134, potassium 4.1, chloride 94, bicarb 28, BUN 6, Cr 0.43, Total bilirubin .6, AST 33, ALT 22, Alk Phos 92, Calcium 10.2.Chart from [facility] reviewed as well as CT scan with discovery of T12 compression fracture and retropulsion into spinal cord with subsequent mass effect onto the thecal sac and possible conus. Patient admitted to internal medicine with orthopedic surgery on consult, Patient underwent of T12 fracture with T11 L1 fusion on 04/28/2025, tolerated procedure well, EBL 100. 04/29: Seen and examined at bedside, no acute events overnight, pain was controlled, she will try to spread her Dilaudid in preparation for discharge on oral medications only. Postop blood work showed mild leukocytosis, likely reactive, stable hemoglobin at 15.0, normal creatinine. 04/30: No events overnight, seen and examined at bedside, she was sitting upright in the bed, ambulated with a walker, PT OT evaluation pending, pain is well-controlled. Blood work pending, vital stable, from IM standpoint patient stable for discharge 05/01: Seen examined bedside, no events overnight, patient was actually ambulating with walker very comfortable and confident. Orthopedic surgery placed discharge order. Pertinent positives and negatives as discussed above, a complete review of systems was performed and all other systems are negative. Vitals Signs Reviewed. General: [nontoxic], [no distress], [appears at stated age] Derm: [warm], [dry] Head: [atraumatic], [normocephalic], [symmetric] Eyes: [EOMI], [no lid lag], [anicteric sclera] Mouth: [no lip lesion], [mucus membranes moist] Cardiovascular: [S1S2 reg], [no murmur] Lungs: [CTA bilateral], [no rhonchi, no rales] , [no accessory muscle use] Abdominal: [soft], [ nontender to palpation], [no guarding], [no appreciable organomegaly] Ext: [no gross muscle atrophy], [no edema], [no contractures],. Dressing clean and dry Neuro: [ CN II-XI grossly intact], [no focal neuro deficits] Psych: [Alert], [oriented], [appropriate affect] Assessment and Plan: Compression fracture of the T12 vertebra suspect open treatment 04/28 - Pain control with Tylenol 650 every 6 hours as needed, Silex 5 every 4 hours as needed, Silex 10 every 6 hours for severe pain, Silex 7.5 every 6 hours for moderate pain, Dilaudid 0.5 every 3 hour for mild to moderate pain and 1 mg every 3 hours for severe pain. - Orthopedic surgery, appreciate recommendations - PT OT consulted Chronic sinus tachycardia - Continue home metoprolol 50 mg twice daily - Cardiac monitoring Nicotine dependence - Current 1/2 pack per day smoker, former 1 pack/day smoker for a total of 47 years - Nicotine patch available as needed; she states she does not believe she will need it Alcohol dependence - Current 6 beer/day drinker - Ativan PO per [facility] protocol - Thiamine, folic acid, multivitamin daily - Seizure precautions Hyponatremia -NS at 75 cc/h, monitor BMP daily Polycythemia likely due to dehydration and Macrocytosis, possibly secondary to poor intake, vitamin deficiency, alcohol abuse, etc... - Hgb 17.8, Hct 51.4 and MCV 101. 4 on admission, hemoglobin down trended on IV hydration to 14.9 - TSH, Vitamin B12 and folate level ordered, TSH normal 1.6, folate 10.5, B12 259 - Continue to monitor CBC Constipation -Continue MiraLAX. daily as needed, added senna daily Chronic conditions: Hypertension Hyperlipidemia COPD - Utilizes home inhalers on an as needed basis, stating she does not use them very often, 1-2 week - Inhalers available as needed, Spiriva 2 puffs daily - Continue home medications: Lisinopril 5 mg p.o. daily, atorvastatin 10 mg p.o. daily, metoprolol 50 mg p.o. twice daily DVT prophylaxis: SCDs CODE STATUS: Full code Discussed with: Patient Anticipated discharge place: Home today Objective - Vital Signs Vital signs: Vital Signs Temp 98.5 F 05/01/25 07:42 Pulse 76 05/01/25 07:42 Resp 18 05/01/25 07:42 BP 127/73 05/01/25 07:42 Pulse Ox 92 L 05/01/25 07:42 FiO2 Intake & Output 04/30/25 05/01/25 05/01/25 18:59 06:59 18:59 Intake Total 900 1000 Balance 900 1000 Intake: Oral 900 1000 Other: Voiding Method Toilet Toilet # Voids 3 - Labs CBC & Chem 7: 04/29/25 05:44 04/29/25 05:44
== END 2025-05-01 13:48 | disposition home or self-care (01) | DRG 448 ==
LOC: EC 17:02 → 4SSUR 19:20
PROVIDERS: ADMIT Student in an Organized Health Care Education/Training Program; ATTEND Student in an Organized Health Care Education/Training Program
PROC: 0RGA0AJ Fusion of Thoracolumbar Vertebral Joint with Interbody Fusion Device, Posterior Approach, Anterior Column, Open Approach (ICD-10-PCS; 2025-04-28)
PROC: XNU4356 Supplement Thoracic Vertebra with Mechanically Expandable (Paired) Synthetic Substitute, Percutaneous Approach, New Technology Group 6 (ICD-10-PCS; 2025-04-28)
PROC: 0PB40ZX Excision of Thoracic Vertebra, Open Approach, Diagnostic (ICD-10-PCS; 2025-04-28)
PROC: 0PS404Z Reposition Thoracic Vertebra with Internal Fixation Device, Open Approach (ICD-10-PCS; 2025-04-28)
PROC: 0RG60AJ Fusion of Thoracic Vertebral Joint with Interbody Fusion Device, Posterior Approach, Anterior Column, Open Approach (ICD-10-PCS; principal; 2025-04-28 10:05)
DX: S22.081A Stable burst fracture of T11-T12 vertebra, initial encounter for closed fracture (principal); E87.1 Hypo-osmolality and hyponatremia; M48.04 Spinal stenosis, thoracic region; S22.080A Wedge compression fracture of T11-T12 vertebra, initial encounter for closed fracture; F10.20 Alcohol dependence, uncomplicated; J44.9 Chronic obstructive pulmonary disease, unspecified; I10 Essential (primary) hypertension; F17.210 Nicotine dependence, cigarettes, uncomplicated; R53.81 Other malaise; M40.204 Unspecified kyphosis, thoracic region; K59.00 Constipation, unspecified; D75.1 Secondary polycythemia; D75.89 Other specified diseases of blood and blood-forming organs; E78.5 Hyperlipidemia, unspecified; E56.9 Vitamin deficiency, unspecified; E86.0 Dehydration; R00.0 Tachycardia, unspecified; W01.0XXA Fall on same level from slipping, tripping and stumbling without subsequent striking against object, initial encounter; X50.0XXA Overexertion from strenuous movement or load, initial encounter; Z79.82 Long term (current) use of aspirin; Z79.899 Other long term (current) drug therapy; Z79.51 Long term (current) use of inhaled steroids; Z86.718 Personal history of other venous thrombosis and embolism
CPT/HCPCS: 36415; 72070; 72128; 72131; 80048; 80053; 82607; 82746; 83735; 84100; 85025; 88307; 88311; 94640; 94760; 96361; 96374; 99285